=== PATIENT | female | born 1960 | race Hispanic/Latino ===

== ENCOUNTER → 2017-06-12 | Outpatient (CLI) | payer BC ==
[~2017-06-12] MED LIST: ACET1TAB12 PO; DIAZ5SOL2 PO; SERT25TA5 PO; SULF1TAB3 PO
== END | disposition home or self-care (01) ==
LOC: RAH 10:22
PROVIDERS: ATTEND Urology
DX: N20.0 Calculus of kidney (principal)
CPT/HCPCS: 74018

== ENCOUNTER 2017-08-15 19:54 | Emergency (ER) | payer BC ==
[2017-08-15] MEDS ORDERED: ONDANSETRON HCL MDV 20ML 2 MG/ML VIAL ONE (20:18)
[2017-08-15] MEDS ORDERED: SODIUM CHLORIDE 0.9% 1000ML 1,000 ML IV ONE (20:19)
[2017-08-15] MEDS ORDERED: KETOROLAC TROMETHAMINE 30MG/ML ONE (20:19)
[2017-08-15 20:25] LABS: APPEARANCE,URINE Clear (CLEAR); BILIRUBIN,URINE Negative (NEGATIVE); COLOR,URINE Yellow (YELLOW); GLUCOSE, URINE (UA) Negative (NEGATIVE); KETONES,URINE Negative (NEGATIVE); LEUKOCYTE ESTERASE ,URINE Moderate (NEGATIVE); NITRATE,URINE Positive (NEGATIVE); OCCULT BLOOD,URINE Moderate (NEGATIVE); PROTEIN,URINE Negative (NEGATIVE); UROBILINOGEN,URINE 0.2 mg/dL (0.2-1.0)
[2017-08-15 20:39] LABS: CREATININE 0.8 mg/dL (0.5-1.5); POTASSIUM 3.7 mmol/L (3.5-5.1)
[2017-08-15 20:44] LABS: ALBUMIN 3.9 g/dL (3.5-5.0); BILIRUBIN,TOTAL 1.1 mg/dL (0.2-1.0); TOTAL PROTEIN, SERUM 7.3 g/dL (6.0-8.3)
[2017-08-15] MEDS ORDERED: CEFTRIAXONE SODIUM 2 GM VIAL ONE (20:55)
[2017-08-15 21:04] LABS: BASOPHILS % (AUTO) 0.7 % (0.0-5.0); EOSINOPHILS % (AUTO) 0.2 % (0.0-8.0); HEMATOCRIT 42.7 % (36-48); LYMPHOCYTES % (AUTO) 10.2 % (21.0-51.0); MEAN CORPUSCULAR HEMOGLOBIN 29.8 pg (27.0-33.0); MEAN CORPUSCULAR HGB CONC 35.1 g/dL (32.0-36.0); MEAN CORPUSCULAR VOLUME 84.9 fL (79-99); MONOCYTES % (AUTO) 7.3 % (3.0-13.0); NEUTROPHILS % (AUTO) 81.6 % (40.0-77.0); PLATELET COUNT (AUTO) 258 K/uL (130-400); RED BLOOD CELL COUNT(AUTO) 5.03 MIL/uL (4.00-5.50); RED CELL DISTRIBUTION WIDTH 13.3 % (11.0-15.5); WHITE BLOOD COUNT (AUTO) 11.6 K/uL (4.8-10.8)
[2017-08-15] MEDS ORDERED: MORPHINE SULFATE 2 MG/ML 1ML SYG ONE (21:39)
[2017-08-15 21:43] LABS: BACTERIA,URINE Many /HPF (None Seen); MUCUS,URINE Few LPF (None Seen); RBC,URINE None Seen /HPF (0-1); SQUAMOUS EPITHELIAL CELL,UR None Seen /LPF (0-2)
[2017-11-25] MEDS ORDERED: SERT25TA5 PO (08:53)
[2017-11-25] MEDS ORDERED: DIAZ5SOL2 PO (08:53)
[2017-11-27] MEDS ORDERED: SULF1TAB3 PO (15:08)
[2017-11-27] MEDS ORDERED: ACET1TAB12 PO (15:22)
== END 2017-08-15 23:42 | disposition home or self-care (01) ==
LOC: EDH 19:54
DX: N12 Tubulo-interstitial nephritis, not specified as acute or chronic (principal); N39.0 Urinary tract infection, site not specified; Z90.710 Acquired absence of both cervix and uterus; Z98.890 Other specified postprocedural states
CPT/HCPCS: 36415; 74176; 80053; 81001; 82550; 83605; 83690; 85025; 87040 ×2; 93005; 96361; 96374; 96375; 99285; J0696; J1885; J7030

== ENCOUNTER → 2017-12-07 | Outpatient (CLI) | payer BC ==
[~2017-12-07] MED LIST changes: +ASPI-1197 PO; +IOHEXOL-350 75 ML VIAL IV ONE
== END | disposition home or self-care (01) ==
LOC: RAH 09:57
PROVIDERS: ATTEND Urology
DX: N28.89 Other specified disorders of kidney and ureter (principal); R60.9 Edema, unspecified; N13.30 Unspecified hydronephrosis
CPT/HCPCS: 74400; Q9967

== ENCOUNTER 2019-10-30 18:11 | Inpatient (IN) | payer BC ==
[~2019-10-30] VITALS: Ht 157.5 cm; Wt 69.7 kg
[~2019-10-30 18:11] MED LIST changes: -ACET1TAB12 PO; +BACL20TA PO; +CRAN250C2 PO; -DIAZ5SOL2 PO; +DIAZ5TAB4 PO; -IOHEXOL-350 75 ML VIAL IV ONE; +ONDA22I IM; -SERT25TA5 PO; +SERT50TA12 PO; -SULF1TAB3 PO; +TAMS-1 PO; +TRAZ-185 PO
[2019-10-30] MEDS ORDERED: ACETAMINOPHEN EXTRA STRENGTH 500 MG TABLET ONE (18:26)
[2019-10-30 18:40] LABS: BASOPHILS % (AUTO) 0.6 % (0.0-5.0); EOSINOPHILS % (AUTO) 1.7 % (0.0-8.0); HEMATOCRIT 40.6 % (36-48); LYMPHOCYTES % (AUTO) 21.1 % (21.0-51.0); MEAN CORPUSCULAR HEMOGLOBIN 29.2 pg (27.0-33.0); MEAN CORPUSCULAR HGB CONC 34.2 g/dL (32.0-36.0); MEAN CORPUSCULAR VOLUME 85.3 fL (79-99); NEUTROPHILS % (AUTO) 65.3 % (40.0-77.0); PLATELET COUNT (AUTO) 262 K/uL (130-400); RED BLOOD CELL COUNT(AUTO) 4.76 MIL/uL (4.00-5.50); RED CELL DISTRIBUTION WIDTH 12.8 % (11.0-15.5); WHITE BLOOD COUNT (AUTO) 9.9 K/uL (4.8-10.8)
[2019-10-30 18:40] LABS: APPEARANCE,URINE Clear (CLEAR); BILIRUBIN,URINE Negative (NEGATIVE); COLOR,URINE Yellow (YELLOW); GLUCOSE, URINE (UA) Negative (NEGATIVE); KETONES,URINE Negative (NEGATIVE); LEUKOCYTE ESTERASE ,URINE Large (NEGATIVE); NITRATE,URINE Negative (NEGATIVE); OCCULT BLOOD,URINE Moderate (NEGATIVE); PH,URINE 7.5 (5.0-8.0); PROTEIN,URINE Negative (NEGATIVE)
[2019-10-30 18:58] LABS: BACTERIA,URINE Rare /HPF (None Seen); SQUAMOUS EPITHELIAL CELL,UR Rare /HPF (0-2)
[2019-10-30 19:03] LABS: CARBON DIOXIDE 21 mmol/L (21-32); CHLORIDE 103 mmol/L (101-111); CREATININE 0.7 mg/dL (0.5-1.5); GLOMERULAR FILTR. RATE CALC 91 mL/min (>60); GLUCOSE,RANDOM 166 mg/dL (70-105); POTASSIUM 3.8 mmol/L (3.5-5.1); SODIUM SERUM 136 mmol/L (136-145); UREA NITROGEN, BLOOD 10 mg/dL (7-18)
[2019-10-30] MEDS ORDERED: KETOROLAC TROMETHAMINE 30MG/ML ONE (19:09)
[2019-10-30] MEDS ORDERED: MEROPENEM 1 GM VIAL ONE (19:09)
[2019-10-30 19:14] LABS: ALANINE AMINOTRANSFERASE 19 U/L (12-78); ALBUMIN 3.6 g/dL (3.5-5.0); ASPARTATE AMINOTRANSFERASE 18 U/L (10-37); BILIRUBIN,TOTAL 0.8 mg/dL (0.2-1.0); CREATINE KINASE, TOTAL 24 U/L (21-232); MYOGLOBIN 17 ng/mL (10-92); TOTAL PROTEIN, SERUM 7.2 g/dL (6.0-8.3); TROPONIN I < 0.04 ng/mL (0.00-0.06)
[2019-10-30 19:32] LABS: RAPID GROUP A STREP NEGATIVE (NEGATIVE)
[2019-10-30 19:48] LABS: INR 0.87 (0.85-1.15); PARTIAL THROMBOPLASTIN TIME 29.5 SEC (26.3-35.5); PROTHROMBIN TIME 9.4 SEC (9.6-11.6)
[2019-10-30] MEDS: SODIUM CHLORIDE 0.9% 1000ML 1,000 ML IV SCH (20:23)
[2019-10-30] MEDS ORDERED: ACETAMINOPHEN 325 MG TAB PO PRN ×2 (20:30)
[2019-10-30] MEDS: MEROPENEM 500 MG VIAL IV SCH (20:30)
[2019-10-30] MEDS ORDERED: HYDRALAZINE HCL 20 MG/ML VIAL IV PRN (20:30)
[2019-10-30] MEDS ORDERED: ONDANSETRON HCL 4 MG/2 ML VIAL IV PRN (20:30)
[2019-10-30] MEDS ORDERED: LACTULOSE 20 GM/30 ML UDCUP PO PRN (20:30)
[2019-10-30] MEDS ORDERED: HYDROMORPHONE 1 MG/1 ML AMP ONE (20:44)
[2019-10-30] MEDS: FAMOTIDINE/PF 20 MG/2 ML VIAL IV SCH (21:00)
[2019-10-30] MEDS ORDERED: ENOXAPARIN SODIUM 40 MG/0.4 ML SYRINGE SQ ONE (21:39)
[2019-10-30] MEDS ORDERED: FAMOTIDINE/PF 20 MG/2 ML VIAL IV ONE (21:40)
[2019-10-30] MEDS ORDERED: SODIUM CHLORIDE 0.9% 1000ML 1,000 ML IV ONE (21:41)
[2019-10-31] MEDS ORDERED: MEROPENEM 500 MG VIAL ONE (02:51)
[2019-10-31] MEDS ORDERED: HYDROMORPHONE HCL 0.5 MG/0.5 ML ML ONE (03:04)
[2019-10-31] MEDS: MEROPENEM 500 MG VIAL IV SCH ×3 (04:30→20:09)
[2019-10-31 04:58] LABS: BASOPHILS % (AUTO) 0.7 % (0.0-5.0); EOSINOPHILS % (AUTO) 3.6 % (0.0-8.0); HEMATOCRIT 38.9 % (36-48); LYMPHOCYTES % (AUTO) 26.6 % (21.0-51.0); MEAN CORPUSCULAR HEMOGLOBIN 29.1 pg (27.0-33.0); MEAN CORPUSCULAR HGB CONC 33.4 g/dL (32.0-36.0); MONOCYTES % (AUTO) 14.4 % (3.0-13.0); NEUTROPHILS % (AUTO) 54.1 % (40.0-77.0); PLATELET COUNT (AUTO) 213 K/uL (130-400); RED BLOOD CELL COUNT(AUTO) 4.47 MIL/uL (4.00-5.50); RED CELL DISTRIBUTION WIDTH 12.9 % (11.0-15.5); WHITE BLOOD COUNT (AUTO) 7.2 K/uL (4.8-10.8)
[2019-10-31 05:10] VITALS: BP 117/68
[2019-10-31 05:14] LABS: CREATININE 0.8 mg/dL (0.5-1.5); POTASSIUM 3.7 mmol/L (3.5-5.1)
--- NOTE | 2019-10-31 05:20 | NUR ---
PT ARRIVED AT THIS TIME FROM ER. PT IS STABLE. DOES HAVE PAIN IN FLANK AREA. GIVEN DILAUDID IN ER. REPORT RECEIVED BY EDY FRASER. PT STATES SHE HAS CHRONIC STONES. ESBL AND ECOLI. PT STATES SHE HAS BEEN GENERALLY WEAK.
[2019-10-31] MEDS: SODIUM CHLORIDE 0.9% 1000ML 1,000 ML IV SCH ×2 (05:32→17:58)
[2019-10-31 07:00] VITALS: BP 141/79
--- NOTE | 2019-10-31 08:31 | NUR ---
SPOKE WITH BARBARA FROM DR. COBB OFFICE, MADE AWARE OF PENDING CONSULT
[2019-10-31] MEDS: HYDROMORPHONE HCL 0.5 MG/0.5 ML ML IVP PRN ×3 (09:12→23:06)
[2019-10-31] MEDS: FAMOTIDINE/PF 20 MG/2 ML VIAL IV SCH ×2 (09:12→20:09)
[2019-10-31 11:00] VITALS: BP 118/63
[2019-10-31 16:00] VITALS: BP 121/78
--- NOTE | 2019-10-31 17:00 | NUR ---
165 PATIENT IN RESTROOM, PULLED RED LIGHT, REYMUNDO FOUND STANDING AT THIS TIME, SHE REPORTED SHE SLIPPED ON A TOWEL SHE HAD PLACED ON THE FLOOR AND FELL TO HER KNEES, DENIES ANY PAIN, NO VISIBLE INJURIES NOTED. V/S WITHIN NORMAL LIMITS. DR. SIDHU ON UNIT AT THIS TIME, HE ASSESSED PATIENT. NO NEW ORDERS. PATIENT DENIES HITTING HER HEAD OR ANY OTHER PART OF HER BODY.
--- NOTE | 2019-10-31 17:33 | NUR ---
INITIAL ASSESSMENT MET W PATIENT AT BEDSIDE- PT STATES INDEPENDENT, DRIVES, NO DME, HOME SAFE AND ACCESSIBLE- STATES SPOUSE WORKS FROM HOME IN THE AFTERNOONS- 230 TO MIDNIGHT, SO PATIENT DROVE HERSELF TO THE HOSPITAL AND EXPECTS TO DRIVE HERSELF HOME . HAS BEEN USING A WALKER BECAUSE OF PAIN FOR THE LAST TWO DAYS. PAIN BETTER CONTROLLED HERE IN THE HOSPITAL. DCP IS HOME, NO NEEDS ANTICIPATED Addendum: 10/31/19 at 1736 by BRITTANY CONROY RN CM Amended: Links added.
[2019-10-31] MEDS: TAMSULOSIN HCL 0.4 MG CAP.ER.24H PO SCH (17:57)
[2019-10-31] MEDS: DILTIAZEM HCL 120 MG CAP.SR.24H PO SCH (17:57)
[2019-10-31] MEDS: ENOXAPARIN SODIUM 40 MG/0.4 ML SYRINGE SQ SCH (17:58)
[2019-10-31 19:49] VITALS: BP 101/61
[2019-11-01] VITALS (7 sets, daily range): BP systolic 96–118; BP diastolic 60–72
[2019-11-01] MEDS: SODIUM CHLORIDE 0.9% 1000ML 1,000 ML IV SCH ×3 (02:41→22:16)
[2019-11-01 04:26] LABS: BASOPHILS % (AUTO) 0.8 % (0.0-5.0); EOSINOPHILS % (AUTO) 4.2 % (0.0-8.0); HEMATOCRIT 35.6 % (36-48); LYMPHOCYTES % (AUTO) 33.3 % (21.0-51.0); MEAN CORPUSCULAR HEMOGLOBIN 29.5 pg (27.0-33.0); MEAN CORPUSCULAR HGB CONC 33.4 g/dL (32.0-36.0); MEAN CORPUSCULAR VOLUME 88.1 fL (79-99); MONOCYTES % (AUTO) 11.1 % (3.0-13.0); NEUTROPHILS % (AUTO) 50.3 % (40.0-77.0); PLATELET COUNT (AUTO) 227 K/uL (130-400); RED BLOOD CELL COUNT(AUTO) 4.04 MIL/uL (4.00-5.50); RED CELL DISTRIBUTION WIDTH 12.7 % (11.0-15.5); WHITE BLOOD COUNT (AUTO) 7.9 K/uL (4.8-10.8)
[2019-11-01] MEDS: MEROPENEM 500 MG VIAL IV SCH ×3 (04:30→21:09)
[2019-11-01 05:09] LABS: CREATININE 0.7 mg/dL (0.5-1.5); CRP QUANTITATIVE 59.7 mg/L (0.00-9.0)
[2019-11-01] MEDS ORDERED: IOHEXOL 350 MG/ML 100ML INFUS..BTL IV ONE (09:40)
--- NOTE | 2019-11-01 10:00 | NUR ---
RECEIVED CALL FROM RADIOLOGY, UNABLE TO PERFORM IVP DUE TO CONSTIPATION. DR. RATLIFF MADE AWARE, PATIENT WILL RECEIVE LACTULOSE PER PRN ORDER AND AN ENEMA IF NEEDED. IVP RESCHEDULED FOR TOMORROW
[2019-11-01] MEDS: TAMSULOSIN HCL 0.4 MG CAP.ER.24H PO SCH (10:22)
[2019-11-01] MEDS: FAMOTIDINE/PF 20 MG/2 ML VIAL IV SCH ×2 (10:22→21:09)
[2019-11-01] MEDS: ENOXAPARIN SODIUM 40 MG/0.4 ML SYRINGE SQ SCH (10:23)
[2019-11-01] MEDS: HYDROMORPHONE HCL 0.5 MG/0.5 ML ML IVP PRN ×2 (10:30→18:06)
[2019-11-01] MEDS: DILTIAZEM HCL 120 MG CAP.SR.24H PO SCH (12:22)
[2019-11-01] MEDS ORDERED: BACLOFEN 10 MG TABLET PO SCH (14:00)
[2019-11-01] MEDS: LACTULOSE 20 GM/30 ML UDCUP PO SCH ×2 (18:02→21:08)
[2019-11-01] MEDS: TRAZODONE HCL 50 MG TAB PO SCH (21:09)
[2019-11-02 04:00] VITALS: BP 112/63
[2019-11-02] MEDS: LACTULOSE 20 GM/30 ML UDCUP PO SCH (04:30)
[2019-11-02 05:08] LABS: BASOPHILS % (AUTO) 0.8 % (0.0-5.0); EOSINOPHILS % (AUTO) 5.2 % (0.0-8.0); HEMATOCRIT 34.8 % (36-48); LYMPHOCYTES % (AUTO) 36.4 % (21.0-51.0); MEAN CORPUSCULAR HEMOGLOBIN 29.8 pg (27.0-33.0); MEAN CORPUSCULAR HGB CONC 33.9 g/dL (32.0-36.0); MEAN CORPUSCULAR VOLUME 87.9 fL (79-99); MONOCYTES % (AUTO) 11.2 % (3.0-13.0); NEUTROPHILS % (AUTO) 46.2 % (40.0-77.0); PLATELET COUNT (AUTO) 235 K/uL (130-400); RED BLOOD CELL COUNT(AUTO) 3.96 MIL/uL (4.00-5.50); RED CELL DISTRIBUTION WIDTH 12.6 % (11.0-15.5); WHITE BLOOD COUNT (AUTO) 5.9 K/uL (4.8-10.8)
[2019-11-02 05:13] LABS: CREATININE 0.6 mg/dL (0.5-1.5); POTASSIUM 3.7 mmol/L (3.5-5.1)
[2019-11-02] MEDS: MEROPENEM 500 MG VIAL IV SCH (05:30)
[2019-11-02 07:30] VITALS: BP 107/73
[2019-11-02] MEDS: HYDROMORPHONE HCL 0.5 MG/0.5 ML ML IVP PRN ×2 (08:22→19:46)
[2019-11-02] MEDS: SODIUM CHLORIDE 0.9% 1000ML 1,000 ML IV SCH ×2 (08:23→19:45)
[2019-11-02] MEDS: CRANBERRY 250 MG PO SCH (09:00)
[2019-11-02] MEDS: DILTIAZEM HCL 120 MG CAP.SR.24H PO SCH (09:00)
[2019-11-02] MEDS ORDERED: TAMSULOSIN HCL 0.4 MG CAP.ER.24H PO SCH (09:00)
[2019-11-02 11:30] VITALS: BP 107/69
[2019-11-02] MEDS: TAMSULOSIN HCL 0.4 MG CAP.ER.24H PO SCH (11:58)
[2019-11-02] MEDS: ENOXAPARIN SODIUM 40 MG/0.4 ML SYRINGE SQ SCH (11:59)
[2019-11-02] MEDS: MEROPENEM 1 GM VIAL IVP SCH ×2 (11:59→18:18)
[2019-11-02] MEDS: ASPIRIN 81MG TAB.CHEW PO SCH (11:59)
[2019-11-02] MEDS: SERTRALINE HCL 50 MG TABLET PO SCH (11:59)
[2019-11-02] MEDS: FAMOTIDINE/PF 20 MG/2 ML VIAL IV SCH ×2 (11:59→19:46)
[2019-11-02 15:30] VITALS: BP 142/55
--- NOTE | 2019-11-02 18:46 | NUR ---
Received report from BRIA Sharp for transfer.
[2019-11-02 19:28] VITALS: BP 111/72
--- NOTE | 2019-11-02 19:28 | NUR ---
Pt. transferred to floor via W/C from [facility] with her belongings. Fully awake and responsive. VS checked and recorded. Assessment done. (See CPOE flow chart.) Plan of care continued. IVP with tomograms done. To wait for Dr. KUMAR to come by for the next medical management based on IVP result.
[2019-11-02] MEDS: TRAZODONE HCL 50 MG TAB PO SCH (22:53)
[2019-11-02 23:09] VITALS: BP 111/80
[2019-11-03] MEDS: MEROPENEM 1 GM VIAL IVP SCH ×3 (03:00→19:57)
[2019-11-03 03:12] VITALS: BP 112/51
[2019-11-03 04:45] LABS: BASOPHILS % (AUTO) 1.1 % (0.0-5.0); EOSINOPHILS % (AUTO) 6.6 % (0.0-8.0); HEMATOCRIT 34.5 % (36-48); LYMPHOCYTES % (AUTO) 44.5 % (21.0-51.0); MEAN CORPUSCULAR HEMOGLOBIN 29.6 pg (27.0-33.0); MEAN CORPUSCULAR HGB CONC 33.9 g/dL (32.0-36.0); MEAN CORPUSCULAR VOLUME 87.3 fL (79-99); MONOCYTES % (AUTO) 10.2 % (3.0-13.0); NEUTROPHILS % (AUTO) 37.2 % (40.0-77.0); PLATELET COUNT (AUTO) 247 K/uL (130-400); RED BLOOD CELL COUNT(AUTO) 3.95 MIL/uL (4.00-5.50); RED CELL DISTRIBUTION WIDTH 12.5 % (11.0-15.5); WHITE BLOOD COUNT (AUTO) 4.7 K/uL (4.8-10.8)
[2019-11-03] MEDS: SODIUM CHLORIDE 0.9% 1000ML 1,000 ML IV SCH ×3 (04:47→19:57)
[2019-11-03 04:56] LABS: CREATININE 0.7 mg/dL (0.5-1.5); POTASSIUM 3.6 mmol/L (3.5-5.1)
[2019-11-03 08:00] VITALS: BP 123/79
--- NOTE | 2019-11-03 08:00 | NUR ---
AM SHIFT ASSESSMENT. NPO, PENDING TO BE SEEN BY .
[2019-11-03] MEDS: CRANBERRY 250 MG PO SCH (09:00)
[2019-11-03] MEDS: FAMOTIDINE/PF 20 MG/2 ML VIAL IV SCH ×2 (09:27→19:57)
[2019-11-03] MEDS: TAMSULOSIN HCL 0.4 MG CAP.ER.24H PO SCH (09:27)
[2019-11-03] MEDS: SERTRALINE HCL 50 MG TABLET PO SCH (09:27)
[2019-11-03] MEDS: DILTIAZEM HCL 120 MG CAP.SR.24H PO SCH (09:27)
[2019-11-03] MEDS: ASPIRIN 81MG TAB.CHEW PO SCH (09:28)
[2019-11-03] MEDS: ENOXAPARIN SODIUM 40 MG/0.4 ML SYRINGE SQ SCH (09:33)
--- NOTE | 2019-11-03 10:30 | NUR ---
IVP REPORT FAXED TO DR.ASASE VOGEL
[2019-11-03] MEDS: HYDROMORPHONE HCL 0.5 MG/0.5 ML ML IVP PRN (11:45)
--- NOTE | 2019-11-03 11:45 | NUR ---
MEDICATED FOR PAIN TO LT. FLANK AREA.
[2019-11-03 12:00] VITALS: BP 117/69
[2019-11-03 15:51] VITALS: BP 109/66
--- NOTE | 2019-11-03 17:25 | NUR ---
CALLED FOR UPDATE ON PT. STATES TO FEED HER TODAY AND NPO AGAIN AGAIN AT MIDNIGHT AND WILL RE EVALUATE TOMORROW
[2019-11-03 19:00] VITALS: BP 129/72
[2019-11-03] MEDS: TRAZODONE HCL 50 MG TAB PO SCH (19:57)
[2019-11-04] VITALS (7 sets, daily range): BP systolic 98–138; BP diastolic 50–86
[2019-11-04] MEDS: MEROPENEM 1 GM VIAL IVP SCH ×3 (03:19→19:57)
[2019-11-04] MEDS ORDERED: LIDOCAINE HCL-MPF 1% 2ML VIAL IV PRN (05:45)
[2019-11-04] MEDS ORDERED: POTASSIUM CHLORIDE 20MEQ/100ML 100 ML IV PRN (05:45)
[2019-11-04] MEDS ORDERED: POTASSIUM CHLORIDE 10% ELIXIR 20 MEQ/15 ML UDCUP PO PRN (05:45)
[2019-11-04 05:58] LABS: BASOPHILS % (AUTO) 1.1 % (0.0-5.0); EOSINOPHILS % (AUTO) 4.8 % (0.0-8.0); HEMATOCRIT 33.7 % (36-48); LYMPHOCYTES % (AUTO) 47.3 % (21.0-51.0); MEAN CORPUSCULAR HEMOGLOBIN 28.9 pg (27.0-33.0); MEAN CORPUSCULAR HGB CONC 33.8 g/dL (32.0-36.0); MEAN CORPUSCULAR VOLUME 85.5 fL (79-99); MONOCYTES % (AUTO) 8.7 % (3.0-13.0); NEUTROPHILS % (AUTO) 37.9 % (40.0-77.0); PLATELET COUNT (AUTO) 250 K/uL (130-400); RED BLOOD CELL COUNT(AUTO) 3.94 MIL/uL (4.00-5.50); RED CELL DISTRIBUTION WIDTH 12.3 % (11.0-15.5); WHITE BLOOD COUNT (AUTO) 4.4 K/uL (4.8-10.8)
[2019-11-04] MEDS: POTASSIUM CHLORIDE 20 MEQ ERTAB PO PRN ×2 (06:23→22:39)
[2019-11-04 06:49] LABS: CREATININE 0.7 mg/dL (0.5-1.5); POTASSIUM 3.5 mmol/L (3.5-5.1)
[2019-11-04] MEDS: SERTRALINE HCL 50 MG TABLET PO SCH (09:00)
[2019-11-04] MEDS: DILTIAZEM HCL 120 MG CAP.SR.24H PO SCH (09:00)
[2019-11-04] MEDS: CRANBERRY 250 MG PO SCH (09:00)
[2019-11-04] MEDS: TAMSULOSIN HCL 0.4 MG CAP.ER.24H PO SCH (09:00)
[2019-11-04] MEDS: ASPIRIN 81MG TAB.CHEW PO SCH (09:00)
[2019-11-04] MEDS: ENOXAPARIN SODIUM 40 MG/0.4 ML SYRINGE SQ SCH (09:00)
[2019-11-04] MEDS: FAMOTIDINE/PF 20 MG/2 ML VIAL IV SCH ×2 (09:56→19:57)
--- NOTE | 2019-11-04 14:30 | NUR ---
DR. KUMAR IN TO SEE PT. NOW, NO FURTHER INTERVENTION FROM HIS END AT THIS TIME TO FOLLOW UP WITH HIM IN 2 TO 3 WEEKS AFTER DISCHARGE.
[2019-11-04 16:06] LABS: INR 0.96 (0.85-1.15); PROTHROMBIN TIME 10.4 SEC (9.6-11.6)
--- NOTE | 2019-11-04 16:12 | NUR ---
CONSENT SIGNED FOR PLACEMENT OF PICC LINE,
[2019-11-04] MEDS: TRAZODONE HCL 50 MG TAB PO SCH (19:57)
[2019-11-04] MEDS: SODIUM CHLORIDE 0.9% 1000ML 1,000 ML IV SCH ×2 (19:57→20:23)
--- NOTE | 2019-11-04 21:30 | NUR ---
LEFT PICC LINE SUCCESSFULLY INSERTED IN LEFT BRACHIAL VEIN, WITH VPS GUIDANCE. HOWEVER UNABLE TO OBTAIN "BULLSEYE" SIGNAL AFTER MULTIPLE ADJUSTMENTS OF CATHETER. PICC LINE REPOSITIONED AFTER SECOND CHEST XRAY TAKEN UNTIL CATHETER TIP IN SATISFACTORY POSITIONING. PENDING RADIOLOGIST CONFIRMATION OF "TIP IN SVC" FOR OK TO USE. BRIA JIMENES AWARE.
--- NOTE | 2019-11-04 22:00 | NUR ---
PAGED GIO GUTIÉRREZ ABOUT PATIENT'S PICC LINE. PERMISSION TO USE GIVEN.
[2019-11-05] MEDS: MEROPENEM 1 GM VIAL IVP SCH ×2 (00:27→09:40)
[2019-11-05 04:00] VITALS: BP 116/58
[2019-11-05] MEDS: SODIUM CHLORIDE 0.9% 1000ML 1,000 ML IV SCH (06:23)
--- NOTE | 2019-11-05 07:30 | NUR ---
NOTE AAOX3. DENIES PAIN OR DISCOMFORT. NO FEVER NO DISTRESS. SHE CAME IN WITH LOWER ABDOMEN PAIN FLANK PAIN AND SHE HAD IVP DONE PER DR KUMAR'S ORDERS TO EVALUATE WHETHER SHE NEEDED A URETERAL STENT BUT HE RECOMMENDED NOT TO HAVE IT DONE. SHE WAS PLACED A PICC LINE LAST NIGHT AND SHE WILL GO HOME WITH [facility] PER DR SERRANO'S RECOMMENDATIONS. WE ARE JUST WAITING ON THE SCRIPT FOR IV ABX FROM HIM SO CASE MANAGEMENT CAN WORK ON [facility] SET UP.
[2019-11-05 08:05] VITALS: BP 131/75
[2019-11-05] MEDS: CRANBERRY 250 MG PO SCH (09:00)
[2019-11-05] MEDS: TAMSULOSIN HCL 0.4 MG CAP.ER.24H PO SCH (09:28)
[2019-11-05] MEDS: SERTRALINE HCL 50 MG TABLET PO SCH (09:28)
[2019-11-05] MEDS: ASPIRIN 81MG TAB.CHEW PO SCH (09:28)
[2019-11-05] MEDS: DILTIAZEM HCL 120 MG CAP.SR.24H PO SCH (09:29)
[2019-11-05] MEDS: FAMOTIDINE/PF 20 MG/2 ML VIAL IV SCH (09:29)
[2019-11-05] MEDS: ENOXAPARIN SODIUM 40 MG/0.4 ML SYRINGE SQ SCH (09:29)
[2019-11-05 11:35] VITALS: BP 121/77
[2019-11-05] MEDS ORDERED: TAMS-1 PO (12:48)
--- NOTE | 2019-11-05 14:55 | NUR ---
NOTE PATIENT HAS BEEN SEEN BY DR SERRANO AND HE HAS RECOMMENDED INVANZ IV FOR 10 DAYS. SHE HAS HAD INVANZ IN THE PAST ADMISSION. SHE DOES NOT NEED INITIAL DOSE TO BE GIVEN PRIOR TO DISCHARGE.
--- NOTE | 2019-11-05 15:15 | NUR ---
[facility] RECD ORDER FOR U FROM DR. VENTURA AND REFERRAL SENT. CALL TO [facility], RECD OK FROM [facility] AT 3PM , OK TO HAVE PATIENT REGISTER. ADVISED PATIENT, SHE STATES THAT SHE TOLD BAMBI AND RN EARLY IN THE DAY THAT HER COULD NOT REGISTER HER AFTER 230 PM. EXPLAINED THAT ORDER WAS REC'D AFTER 1PM TODAY AND [place] [facility] [place] IF SHE WANTED TO GO REGISTER HERSELF NOW, SHE KNOWS THAT U CLOSES AT 4PM SHE WOULD NOT GET AN APPOINTMENT CONFIRMED POSSIBLE UNTIL THE MORNING. PATIENT HAS SAME INSURANCE THAT HAS BEEN ACCEPTED/APPROVED FOR [facility] EARLIER THIS YEAR PATIENT STATES HAS GONE TO [facility] 'MANY TIMES' AND KNOWS ALL ABOUT IT, WILL TO ACCEPT THE FACT THAT SHE HAS TO FOLLOW UP FOR AN APPOINTMENT TIME. ADVISED DR. QUINTANA AND PRIMARY RN Addendum: 11/06/19 at 0751 by BRITTANY CONROY RN CM Amended: Links added.
--- NOTE | 2019-11-05 15:40 | NUR ---
NOTE DISCHARGE INSTRUCTIONS GIVEN TO PATIENT AT THIS TIME. VERBALIZED UNDERSTANDING. REFER TO DC SUMMARY FOR DETAILS. SHE [place] [facility]. SHE HAS THE ORDERS GIVEN FROM CASE MANAGEMENT. SHE HAS DONE THIS BEFORE TWICE SO SHE IS FAMILIAR WITH THE PROCESS AND KNOWS WHERE TO GO. FAMILY TRANSPORTING HER THERE.
--- NOTE | 2019-11-06 14:50 | NUR ---
REC'D CALL THIS MORNING FROM PATIENT STATE SHE WENT TO [place] [facility] [place] WAS TOLD THE MEDICINE WOULD COST $1800 AND SHE CANNOT AFFORD- CM ASKED IF SHE HAD TO PAY SAME AMOUNT IN JULY, SHE STATES NO, THERE WAS NO CO-PAY. CM ASKED, BUT YOU SAID YOU HAD SAME INSURANCE, SHE STATES ITS NOT THE SAME AFTER ALL. STATES SHE IS WORKING WITH [facility] [place]IST[facility]ATION TO SEE IF SHE CAN GET A PAYMENT PLANE CALLED X2 TO [facility], CALLED AGAIN TO PATIENT/SPOUSE NO ANSWER. CALL TO [facility] AT [facility], STATES SHE TRANSFERRED THE PATIENT TO REGISTRATION, STATES DIRECTOR OF [facility] TRYING OT GET A SUKHJINDER RATE FOR PATIENT
== END 2019-11-05 15:30 | disposition home or self-care (01) | DRG 872 ==
LOC: EDH 18:11 → EDHIP 20:23 → 4BH 10-31 05:19 → 3CH 11-02 18:50
PROVIDERS: ADMIT Internal Medicine; ATTEND Internal Medicine
PROC: 02HV33Z Insertion of Infusion Device into Superior Vena Cava, Percutaneous Approach (ICD-10-PCS; principal; 2019-11-04)
DX: A41.51 Sepsis due to Escherichia coli [E. coli] (principal); N13.6 Pyonephrosis; Z16.24 Resistance to multiple antibiotics; Z87.442 Personal history of urinary calculi; Z86.19 Personal history of other infectious and parasitic diseases; I10 Essential (primary) hypertension; F32.9 Major depressive disorder, single episode, unspecified; F41.9 Anxiety disorder, unspecified; Z87.440 Personal history of urinary (tract) infections; Z90.710 Acquired absence of both cervix and uterus; Z91.19 Patient's noncompliance with other medical treatment and regimen; G43.909 Migraine, unspecified, not intractable, without status migrainosus; Z88.6 Allergy status to analgesic agent; Z88.0 Allergy status to penicillin; Z88.8 Allergy status to other drugs, medicaments and biological substances; E83.59 Other disorders of calcium metabolism; N29 Other disorders of kidney and ureter in diseases classified elsewhere
CPT/HCPCS: 36415; 71045; 74018; 74176; 74400; 80048; 80053; 81001; 82550; 83605; 83874; 84145; 84484; 85025; 85610; 85730; 86140; 87040; 87077; 87088; 87186; 87804; 87880; 93005; C1894; G0378; J1170; J1650; J1885; J2185; J3490; J7030; Q9967

== ENCOUNTER 2020-02-21 14:35 | Inpatient (IN) | payer BC ==
[~2020-02-21] VITALS: Ht 157.5 cm; Wt 71.8 kg
[2020-02-21] MEDS ORDERED: SODIUM CHLORIDE 0.9% 1000ML 1,000 ML IV ONE ×2 (15:06→16:30)
[2020-02-21] MEDS ORDERED: ACETAMINOPHEN EXTRA STRENGTH 500 MG TABLET ONE (15:06)
[2020-02-21 15:12] LABS: BASOPHILS % (AUTO) 0.4 % (0.0-5.0); HEMATOCRIT 40.9 % (36-48); LYMPHOCYTES % (AUTO) 18.8 % (21.0-51.0); MEAN CORPUSCULAR HEMOGLOBIN 29.2 pg (27.0-33.0); MEAN CORPUSCULAR HGB CONC 33.7 g/dL (32.0-36.0); MEAN CORPUSCULAR VOLUME 86.7 fL (79-99); MONOCYTES % (AUTO) 12.3 % (3.0-13.0); NEUTROPHILS % (AUTO) 67.3 % (40.0-77.0); PLATELET COUNT (AUTO) 295 K/uL (130-400); RED BLOOD CELL COUNT(AUTO) 4.72 MIL/uL (4.00-5.50); WHITE BLOOD COUNT (AUTO) 11.4 K/uL (4.8-10.8)
[2020-02-21 15:14] LABS: APPEARANCE,URINE Clear (CLEAR); BILIRUBIN,URINE Negative (NEGATIVE); COLOR,URINE Yellow (YELLOW); GLUCOSE, URINE (UA) Negative (NEGATIVE); KETONES,URINE Negative (NEGATIVE); LEUKOCYTE ESTERASE ,URINE Moderate (NEGATIVE); NITRATE,URINE Negative (NEGATIVE); OCCULT BLOOD,URINE Small (NEGATIVE); PROTEIN,URINE Negative (NEGATIVE)
[2020-02-21 15:23] LABS: BACTERIA,URINE Moderate /HPF (None Seen); MUCUS,URINE Few LPF (None Seen); SQUAMOUS EPITHELIAL CELL,UR 0-2 /HPF (0-2)
[2020-02-21 15:26] LABS: CREATININE 0.8 mg/dL (0.5-1.5); POTASSIUM 3.4 mmol/L (3.5-5.1)
[2020-02-21] MEDS ORDERED: MEROPENEM 1 GM VIAL ONE (15:28)
[2020-02-21] MEDS ORDERED: SODIUM CHLORIDE 0.9% 50 ML IV ONE (15:28)
[2020-02-21 15:32] LABS: ALBUMIN 3.8 g/dL (3.5-5.0); BILIRUBIN,TOTAL 0.7 mg/dL (0.2-1.0); TOTAL PROTEIN, SERUM 7.7 g/dL (6.0-8.3)
[2020-02-21] MEDS ORDERED: KETOROLAC TROMETHAMINE 30MG/ML ONE (16:29)
[2020-02-21] MEDS ORDERED: POTASSIUM CHLORIDE 20 MEQ ERTAB PO SCH (19:30)
[2020-02-21] MEDS ORDERED: POTASSIUM CHLORIDE 10% ELIXIR 20 MEQ/15 ML UDCUP PO PRN (19:45)
[2020-02-21] MEDS ORDERED: LIDOCAINE HCL-MPF 1% 2ML VIAL IJ PRN (19:45)
[2020-02-21] MEDS ORDERED: ONDANSETRON HCL 4 MG/2 ML VIAL IV PRN (19:45)
[2020-02-21] MEDS ORDERED: ACETAMINOPHEN 325 MG TAB PO PRN ×2 (19:45)
[2020-02-21] MEDS ORDERED: DIPHENHYDRAMINE HCL 25 MG CAPSULE PO PRN (19:45)
[2020-02-21] MEDS ORDERED: NITROGLYCERIN 0.4 MG SL TAB SL PRN (19:45)
[2020-02-21] MEDS ORDERED: POTASSIUM CHLORIDE 20MEQ/100ML 100 ML IV PRN (19:45)
[2020-02-21] MEDS ORDERED: FAMOTIDINE 20MG TAB 20 MG TAB ONE (19:52)
[2020-02-21] MEDS ORDERED: ACETAMINOPHEN 325 MG TAB ONE (19:53)
[2020-02-21] MEDS ORDERED: POTASSIUM CHLORIDE 20 MEQ ERTAB PO ONE (19:53)
[2020-02-21 20:10] LABS: CREATINE KINASE, TOTAL 30 U/L (21-232); MYOGLOBIN 24 ng/mL (10-92); TROPONIN I < 0.04 ng/mL (0.00-0.06)
[2020-02-21] MEDS: FAMOTIDINE 20MG TAB 20 MG TAB PO SCH (21:00)
[2020-02-21 22:10] VITALS: BP 123/54
--- NOTE | 2020-02-21 22:20 | NUR ---
ADMISSION NOTE: Admitted to floor per wheechair. AOx4 but looking weak. Placed in bed comfortably. VS checked and recorded. Physical Assessment done. ( See CPOE flow chart for full assessment) Plan of care initiated. Has IV site to RAC #20 gauge -patent and intact. IVF NS 1L started at 100 ml/hr via infusion pump as ordered. Home meds listed. For urology and infectious disease MD consult in AM . Seen and examined by Hospitalist , Stone NP with additional orders. Policies and procedures explained. Oriented to room and used of call light. Pain and tenderness noted to bilat flank and lower abd. Medicated as ordered. Observed and monitored for any unusualities. Needs attended and cared for.
[2020-02-21] MEDS ORDERED: NAPR-1023 PO (22:22)
[2020-02-21] MEDS ORDERED: TEMAZEPAM 15 MG CAPSULE ONE (22:43)
[2020-02-21] MEDS ORDERED: TEMAZEPAM 15 MG CAPSULE PO ONE (22:45)
[2020-02-21] MEDS ORDERED: HYDROCODONE/ACETAMINOPHEN 5/325 MG TAB ONE (22:46)
[2020-02-21] MEDS: SODIUM CHLORIDE 0.9% 1000ML 1,000 ML IV SCH (22:50)
[2020-02-21] MEDS: MEROPENEM 1 GM VIAL IVP SCH (23:25)
[2020-02-21] MEDS: TAMSULOSIN HCL 0.4 MG CAP.ER.24H PO SCH (23:30)
[2020-02-21 23:42] VITALS: BP 122/56
[2020-02-22 04:00] VITALS: BP 93/69
[2020-02-22] MEDS: HYDROCODONE/ACETAMINOPHEN 5/325 MG TAB PO PRN ×2 (05:45→09:51)
[2020-02-22 06:03] LABS: BASOPHILS % (AUTO) 0.6 % (0.0-5.0); EOSINOPHILS % (AUTO) 1.4 % (0.0-8.0); HEMATOCRIT 36.6 % (36-48); LYMPHOCYTES % (AUTO) 17.3 % (21.0-51.0); MEAN CORPUSCULAR HEMOGLOBIN 29.3 pg (27.0-33.0); MEAN CORPUSCULAR HGB CONC 33.9 g/dL (32.0-36.0); MEAN CORPUSCULAR VOLUME 86.5 fL (79-99); NEUTROPHILS % (AUTO) 68.3 % (40.0-77.0); PLATELET COUNT (AUTO) 260 K/uL (130-400); RED BLOOD CELL COUNT(AUTO) 4.23 MIL/uL (4.00-5.50); RED CELL DISTRIBUTION WIDTH 13.1 % (11.0-15.5); WHITE BLOOD COUNT (AUTO) 10.8 K/uL (4.8-10.8)
[2020-02-22 06:18] LABS: ALBUMIN 2.9 g/dL (3.5-5.0); BILIRUBIN,TOTAL 0.9 mg/dL (0.2-1.0); CREATININE 0.8 mg/dL (0.5-1.5); MAGNESIUM 1.7 mg/dL (1.80-2.40); POTASSIUM 3.8 mmol/L (3.5-5.1); TOTAL PROTEIN, SERUM 6.5 g/dL (6.0-8.3)
[2020-02-22 07:59] VITALS: BP 120/68
[2020-02-22] MEDS: ENOXAPARIN SODIUM 30 MG/0.3 ML SQ SCH (09:32)
[2020-02-22] MEDS: MEROPENEM 1 GM VIAL IVP SCH ×3 (09:32→23:48)
[2020-02-22] MEDS: TAMSULOSIN HCL 0.4 MG CAP.ER.24H PO SCH (09:32)
[2020-02-22] MEDS: FAMOTIDINE 20MG TAB 20 MG TAB PO SCH ×2 (09:32→22:11)
[2020-02-22] MEDS ORDERED: FLU VACC QS2020-21(6MOS UP)/PF 60 MCG/0.5 ML ML IM ONE (10:00)
[2020-02-22 11:58] VITALS: BP 104/62
[2020-02-22] MEDS ORDERED: HYDROMORPHONE 1 MG/1 ML AMP IVP PRN (15:15)
[2020-02-22] MEDS ORDERED: HYDROMORPHONE PCA 10 MG/50 ML 50 ML IV PRN (15:15)
[2020-02-22] MEDS ORDERED: NALOXONE HCL 0.4 MG/1 ML ML IVP PRN (15:15)
[2020-02-22] MEDS ORDERED: HYDROMORPHONE HCL 0.5 MG/0.5 ML ML IVP PRN (15:15)
[2020-02-22] MEDS ORDERED: HYDROMORPHONE HCL 2 MG/ML VIAL ONE (15:19)
[2020-02-22] MEDS: SODIUM CHLORIDE 0.9% 1000ML 1,000 ML IV SCH (15:42)
[2020-02-22 16:00] VITALS: BP 119/69
[2020-02-22] MEDS ORDERED: IOHEXOL 350 MG/ML 100ML INFUS..BTL IV ONE (17:53)
[2020-02-22 20:00] VITALS: BP 121/64
--- NOTE | 2020-02-22 22:12 | NUR ---
MEDS SHIFT ASSESSMENT DONE, PLEASE REFER TO CHART. DUE MEDS ADMINISTERED. SALES REPRESENTATIVE GROCERIES DILAUDID STARTED, WITNESSED BY BRIA MORRIS. INSTRUCTED PT ON USE OF SALES REPRESENTATIVE GROCERIES, VERBALIZES UNDERSTANDING. RAPID COVID SWAB DONE, SENT TO LAB FOR ANALYSIS. KEPT COMFORTALBE IN BED. WILL RE-ASSESS PT. Addendum: 02/23/20 at 0339 by BEBA ROLLINS RN RN Amended: Links added.
[2020-02-23] VITALS: BP 121/65
[2020-02-23] MEDS: SODIUM CHLORIDE 0.9% 1000ML 1,000 ML IV SCH ×3 (01:06→20:23)
--- NOTE | 2020-02-23 02:00 | NUR ---
ROUNDS PT RESTING WELL, FAIRLY ASLEEP. NO DISTRESS NOTED. KEPT UNDISTURBED FOR NOW. WILL CONTINUE TO MONITOR.
[2020-02-23 04:00] VITALS: BP 121/61
[2020-02-23 05:24] LABS: BASOPHILS % (AUTO) 0.5 % (0.0-5.0); EOSINOPHILS % (AUTO) 1.7 % (0.0-8.0); MEAN CORPUSCULAR HEMOGLOBIN 29.2 pg (27.0-33.0); MONOCYTES % (AUTO) 12.5 % (3.0-13.0); PLATELET COUNT (AUTO) 267 K/uL (130-400); RED BLOOD CELL COUNT(AUTO) 4.07 MIL/uL (4.00-5.50); RED CELL DISTRIBUTION WIDTH 12.7 % (11.0-15.5); WHITE BLOOD COUNT (AUTO) 8.8 K/uL (4.8-10.8)
[2020-02-23 05:46] LABS: ALBUMIN 2.9 g/dL (3.5-5.0); BILIRUBIN,TOTAL 0.7 mg/dL (0.2-1.0); CREATININE 0.7 mg/dL (0.5-1.5); POTASSIUM 3.5 mmol/L (3.5-5.1); TOTAL PROTEIN, SERUM 6.5 g/dL (6.0-8.3)
[2020-02-23] MEDS: POTASSIUM CHLORIDE 20 MEQ ERTAB PO PRN ×2 (06:33→20:21)
--- NOTE | 2020-02-23 06:33 | NUR ---
MEDS PT JUST HAD HER SHOWER, TOLERATED ACTIVITY WELL. DUE KCL DOSE PER PROTOCOL STARTED. PIV NOTED TO BE LEAKING, DISCONTINUED SITE WITH CATHETER INTACT. RE-INSERTED G20 TO RT HAND. PT TOLERATED RE-INSERTION WELL. FOR MORE CARE.
[2020-02-23 08:00] VITALS: BP 134/66
[2020-02-23] MEDS: FAMOTIDINE 20MG TAB 20 MG TAB PO SCH ×2 (09:40→20:20)
[2020-02-23] MEDS: TAMSULOSIN HCL 0.4 MG CAP.ER.24H PO SCH (09:40)
[2020-02-23] MEDS: ENOXAPARIN SODIUM 30 MG/0.3 ML SQ SCH (09:40)
[2020-02-23] MEDS: MEROPENEM 1 GM VIAL IVP SCH ×3 (09:40→23:40)
[2020-02-23 12:00] VITALS: BP 113/67
[2020-02-23 16:00] VITALS: BP 112/66
--- NOTE | 2020-02-23 16:24 | NUR ---
DCP CM met with pt discussed dc plans. Pt is independent prior to admission, lives at home with spouse. Pt has a walker. Denies any other equipments/services. Feels safe to go back home, still drives, spouse able to assist with transportation and needs as necessary. DC plan to home once stable. CM to continue to follow up. Addendum: 02/23/20 at 1625 by HANG CASTELLON LVN CM Amended: Links added.
[2020-02-23] MEDS ORDERED: MAGNESIUM 2GM PREMIX 50ML 50 ML IV PRN (19:30)
[2020-02-23 20:00] VITALS: BP 116/72
[2020-02-24] VITALS (7 sets, daily range): BP systolic 110–189; BP diastolic 61–109
[2020-02-24 04:58] LABS: BASOPHILS % (AUTO) 0.7 % (0.0-5.0); EOSINOPHILS % (AUTO) 4.1 % (0.0-8.0); HEMATOCRIT 34.3 % (36-48); LYMPHOCYTES % (AUTO) 26.5 % (21.0-51.0); MEAN CORPUSCULAR HEMOGLOBIN 29.1 pg (27.0-33.0); MEAN CORPUSCULAR HGB CONC 33.8 g/dL (32.0-36.0); MEAN CORPUSCULAR VOLUME 86.2 fL (79-99); MONOCYTES % (AUTO) 12.4 % (3.0-13.0); PLATELET COUNT (AUTO) 285 K/uL (130-400); RED BLOOD CELL COUNT(AUTO) 3.98 MIL/uL (4.00-5.50); RED CELL DISTRIBUTION WIDTH 12.5 % (11.0-15.5); WHITE BLOOD COUNT (AUTO) 7.3 K/uL (4.8-10.8)
[2020-02-24 05:31] LABS: ALBUMIN 2.8 g/dL (3.5-5.0); BILIRUBIN,TOTAL 0.6 mg/dL (0.2-1.0); CREATININE 0.6 mg/dL (0.5-1.5); POTASSIUM 4.3 mmol/L (3.5-5.1); TOTAL PROTEIN, SERUM 6.4 g/dL (6.0-8.3)
[2020-02-24] MEDS: MEROPENEM 1 GM VIAL IVP SCH ×3 (06:22→23:14)
[2020-02-24] MEDS: FAMOTIDINE 20MG TAB 20 MG TAB PO SCH ×2 (09:31→20:20)
[2020-02-24] MEDS: TAMSULOSIN HCL 0.4 MG CAP.ER.24H PO SCH (09:31)
[2020-02-24] MEDS: SODIUM CHLORIDE 0.9% 1000ML 1,000 ML IV SCH ×2 (09:31→16:38)
[2020-02-24] MEDS: ENOXAPARIN SODIUM 30 MG/0.3 ML SQ SCH (09:32)
[2020-02-24] MEDS: HYDROCODONE/ACETAMINOPHEN 5/325 MG TAB PO PRN ×2 (18:10→22:20)
[2020-02-25 03:49] VITALS: BP 107/60
[2020-02-25] MEDS: MEROPENEM 1 GM VIAL IVP SCH ×2 (06:00→15:29)
[2020-02-25 06:38] LABS: BASOPHILS % (AUTO) 0.8 % (0.0-5.0); EOSINOPHILS % (AUTO) 6.1 % (0.0-8.0); HEMATOCRIT 35.2 % (36-48); LYMPHOCYTES % (AUTO) 37.6 % (21.0-51.0); MEAN CORPUSCULAR HEMOGLOBIN 28.5 pg (27.0-33.0); MEAN CORPUSCULAR HGB CONC 32.7 g/dL (32.0-36.0); MEAN CORPUSCULAR VOLUME 87.3 fL (79-99); MONOCYTES % (AUTO) 11.3 % (3.0-13.0); NEUTROPHILS % (AUTO) 43.9 % (40.0-77.0); PLATELET COUNT (AUTO) 314 K/uL (130-400); RED BLOOD CELL COUNT(AUTO) 4.03 MIL/uL (4.00-5.50); RED CELL DISTRIBUTION WIDTH 12.8 % (11.0-15.5); WHITE BLOOD COUNT (AUTO) 6.1 K/uL (4.8-10.8)
[2020-02-25 06:58] LABS: ALBUMIN 2.7 g/dL (3.5-5.0); BILIRUBIN,TOTAL 0.4 mg/dL (0.2-1.0); CREATININE 0.7 mg/dL (0.5-1.5)
[2020-02-25] MEDS: TAMSULOSIN HCL 0.4 MG CAP.ER.24H PO SCH (08:23)
[2020-02-25] MEDS: FAMOTIDINE 20MG TAB 20 MG TAB PO SCH ×2 (08:23→20:10)
[2020-02-25] MEDS: SODIUM CHLORIDE 0.9% 1000ML 1,000 ML IV SCH (08:24)
[2020-02-25 08:25] VITALS: BP 132/55
[2020-02-25] MEDS: ENOXAPARIN SODIUM 30 MG/0.3 ML SQ SCH (08:25)
--- NOTE | 2020-02-25 11:00 | NUR ---
CM Note: [facility] pending approval CM met with pt discussed MD recommendations for LTAC pt will need abx iv Ertapenem X [address] Taylor. Pt agreeable, DONG signed for [facility]. Faxed order, clinicals to [facility], confirmation received. Spoke to Kathy nieto/Daniel, made aware of new referral, aware dcp once pt has approval. EMS arranged for today in case, primary nurse to call [facility] once pt ready to DC. MOT semi-filled pending to be completed once approval received, flagged in chart. Primary nurse aware. CM to continue to follow up.
[2020-02-25 14:45] VITALS: BP 110/89
[2020-02-25] MEDS: HYDROCODONE/ACETAMINOPHEN 5/325 MG TAB PO PRN (17:54)
[2020-02-25 18:50] VITALS: BP 121/71
[2020-02-25 19:51] VITALS: BP 115/64
[2020-02-25 23:52] VITALS: BP 110/77
[2020-02-26] MEDS: MEROPENEM 1 GM VIAL IVP SCH ×4 (00:13→23:24)
[2020-02-26 03:50] VITALS: BP 115/66
[2020-02-26 08:00] VITALS: BP 112/57
[2020-02-26] MEDS: FAMOTIDINE 20MG TAB 20 MG TAB PO SCH ×2 (09:34→20:30)
[2020-02-26] MEDS: ENOXAPARIN SODIUM 30 MG/0.3 ML SQ SCH (09:34)
[2020-02-26] MEDS: TAMSULOSIN HCL 0.4 MG CAP.ER.24H PO SCH (09:34)
[2020-02-26] MEDS: HYDROCODONE/ACETAMINOPHEN 5/325 MG TAB PO PRN (09:35)
[2020-02-26] MEDS: SERTRALINE HCL 50 MG TABLET PO SCH (09:51)
[2020-02-26 11:31] VITALS: BP 122/50
[2020-02-26] MEDS: CHLORHEXIDINE GLUCONATE 473 ML MOUTHWASH MM SCH ×2 (12:41→20:31)
--- NOTE | 2020-02-26 15:35 | NUR ---
CM Note: Jordana pending approval CM spoke to Kathy Kaplan, updated clinicals received and forwarded to insurance. Pt pending approval at this time. MOT semi-filled pending to be completed once approval received. EMS arranged for today in case pt received approval, primary nurse to call [facility] once pt ready to DC. Primary nurse aware. CM to cont to follow up.
[2020-02-26 16:00] VITALS: BP 101/50
[2020-02-26 20:00] VITALS: BP 113/59
--- NOTE | 2020-02-26 20:30 | NUR ---
MEDS SHIFT ASSESSMENT DONE, PLEASE REFER TO CHART. DUE MEDS ADMINISTERED, TOLERATED WELL. PCP IN TO ASSIST PT TO SHOWER. Addendum: 02/26/20 at 2347 by BEBA ROLLINS RN RN Amended: Links added.
[2020-02-26] MEDS: ZOLPIDEM TARTRATE 5 MG TAB PO PRN (20:31)
[2020-02-26 23:42] VITALS: BP 107/56
--- NOTE | 2020-02-27 01:40 | NUR ---
ROUNDS PT RESTING WELL, FAIRLY ASLEEP. NO DISTRESS NOTED. KEPT UNDISTURBED FOR NOW. WILL CONTINUE TO MONITOR. CALL LIGHT WITHIN REACH.
[2020-02-27 03:48] VITALS: BP 120/65
[2020-02-27 08:00] VITALS: BP 115/64
[2020-02-27] MEDS: MEROPENEM 1 GM VIAL IVP SCH ×2 (08:25→16:00)
[2020-02-27] MEDS: TAMSULOSIN HCL 0.4 MG CAP.ER.24H PO SCH (08:26)
[2020-02-27] MEDS: SERTRALINE HCL 50 MG TABLET PO SCH (08:26)
[2020-02-27] MEDS: FAMOTIDINE 20MG TAB 20 MG TAB PO SCH ×2 (08:26→20:21)
[2020-02-27] MEDS: ENOXAPARIN SODIUM 30 MG/0.3 ML SQ SCH (08:27)
[2020-02-27] MEDS: CHLORHEXIDINE GLUCONATE 473 ML MOUTHWASH MM SCH ×2 (08:28→20:22)
[2020-02-27 12:00] VITALS: BP 121/60
--- NOTE | 2020-02-27 12:57 | NUR ---
CM Note: [facility] denial CM spoke to Kathy Kaplan, received initial denial from insurance. As per Kathy reached out to Dr Taylor and Dr Lau for peer to peer, declined at this time. As per Dr Lau follow through w/SNF placement. Patient given update, made aware of denial, agreeable for Plan B initialy for [facility], pt verbalized go ahead and sent it to [facility]. Primary nurse Kay FRASER made aware will follow through w/ SNF placement to [facility]. CM to continue to follow up.
[2020-02-27] MEDS: HYDROCODONE/ACETAMINOPHEN 5/325 MG TAB PO PRN ×2 (13:12→20:21)
--- NOTE | 2020-02-27 13:41 | NUR ---
BAMBI Note: [facility] pending approval CM faxed order, clinicals, PAS[facility], Covid Transfer Form, covid result 02/21 to [facility], confirmation received. Spoke to Daria nieto/[facility], aware pt had denial for [facility] placement, dcp once approved. Ordered covid pcr today, pending to be colleted by Nurse Kay FRASER, pending result, will send result once available. Pt pending approval. Primary nurse aware. CM to contine to follow up.
--- NOTE | 2020-02-27 14:04 | NUR ---
DR. SERRANO IN TO SEE PT. NO NEW ORDERS.
[2020-02-27 16:00] VITALS: BP 101/51
[2020-02-27 20:00] VITALS: BP 135/79
[2020-02-27] MEDS: ZOLPIDEM TARTRATE 5 MG TAB PO PRN (20:21)
--- NOTE | 2020-02-27 20:25 | NUR ---
MEDS SHIFT ASSESSMENT DONE, PLEASE REFER TO CHART. PT CLAIMS OF FLANK PAINS. DUE MEDS GIVEN , NORCO GIVEN FOR PAINS. KEPT RESTED AND COMFORTABLE WILL RE-ASSESS PT. Addendum: 02/28/20 at 0112 by BEBA ROLLINS RN RN Amended: Links added.
--- NOTE | 2020-02-27 21:30 | NUR ---
SWAB NASAL SWAB DONE FOR [facility] VIRUS PCR TEST. SET TO LAB FOR ANALYSIS.
[2020-02-28] VITALS: BP 114/51
[2020-02-28] MEDS: MEROPENEM 1 GM VIAL IVP SCH ×3 (00:11→16:42)
--- NOTE | 2020-02-28 02:00 | NUR ---
ROUNDS PT FAIRLY ASLEEP. NO DISTRESS NOTED. KEPT UNDISTURBED FOR NOW. WILL CONTINUE TO MONITOR. CALL LIGHT WITHIN REACH.
[2020-02-28 04:00] VITALS: BP 119/69
[2020-02-28 05:14] LABS: BASOPHILS % (AUTO) 1.3 % (0.0-5.0); EOSINOPHILS % (AUTO) 6.3 % (0.0-8.0); HEMATOCRIT 38.8 % (36-48); LYMPHOCYTES % (AUTO) 42.5 % (21.0-51.0); MEAN CORPUSCULAR HGB CONC 33.8 g/dL (32.0-36.0); MONOCYTES % (AUTO) 9.6 % (3.0-13.0); PLATELET COUNT (AUTO) 378 K/uL (130-400); RED BLOOD CELL COUNT(AUTO) 4.51 MIL/uL (4.00-5.50); RED CELL DISTRIBUTION WIDTH 12.6 % (11.0-15.5); WHITE BLOOD COUNT (AUTO) 6.2 K/uL (4.8-10.8)
[2020-02-28 05:26] LABS: CREATININE 0.7 mg/dL (0.5-1.5); MAGNESIUM 2.1 mg/dL (1.80-2.40); POTASSIUM 3.7 mmol/L (3.5-5.1)
--- NOTE | 2020-02-28 06:28 | NUR ---
ROUNDS PT RESTING WELL. NO DISTRESS NOTED. NO CONCERNS VERBALIZED. KEPT COMFORTABLE IN BED. FOR MORE CARE.
[2020-02-28 08:00] VITALS: BP 114/61
--- NOTE | 2020-02-28 10:01 | NUR ---
[facility] Call placed this am to Daria Busby. She mentions that ins. auth remains pending at this time. Per Daria she will f/u on Sunday.
[2020-02-28] MEDS: FAMOTIDINE 20MG TAB 20 MG TAB PO SCH ×2 (10:10→20:47)
[2020-02-28] MEDS: SERTRALINE HCL 50 MG TABLET PO SCH (10:10)
[2020-02-28] MEDS: TAMSULOSIN HCL 0.4 MG CAP.ER.24H PO SCH (10:10)
[2020-02-28] MEDS: ENOXAPARIN SODIUM 30 MG/0.3 ML SQ SCH (10:11)
[2020-02-28] MEDS: CHLORHEXIDINE GLUCONATE 473 ML MOUTHWASH MM SCH ×2 (10:14→20:48)
[2020-02-28 12:00] VITALS: BP 119/75
[2020-02-28 16:00] VITALS: BP 130/68
[2020-02-28 20:18] VITALS: BP 128/71
[2020-02-28] MEDS: ZOLPIDEM TARTRATE 5 MG TAB PO PRN (21:30)
[2020-02-29] MEDS: MEROPENEM 1 GM VIAL IVP SCH ×4 (00:06→23:00)
[2020-02-29 00:09] VITALS: BP 109/62
[2020-02-29 04:01] VITALS: BP 115/67
[2020-02-29 08:00] VITALS: BP 123/57
[2020-02-29] MEDS: TAMSULOSIN HCL 0.4 MG CAP.ER.24H PO SCH (08:55)
[2020-02-29] MEDS: FAMOTIDINE 20MG TAB 20 MG TAB PO SCH ×2 (08:55→20:22)
[2020-02-29] MEDS: SERTRALINE HCL 50 MG TABLET PO SCH (08:55)
[2020-02-29] MEDS: ENOXAPARIN SODIUM 30 MG/0.3 ML SQ SCH (08:56)
[2020-02-29] MEDS: CHLORHEXIDINE GLUCONATE 473 ML MOUTHWASH MM SCH ×2 (09:01→20:23)
[2020-02-29 11:00] VITALS: BP 107/71
[2020-02-29 16:00] VITALS: BP 95/55
--- NOTE | 2020-02-29 17:14 | NUR ---
FELT A LITTLE WARM AND LOOKED SL. FLUSHED. T, 97.8. STATES FEELS TIRED OTHERWISE OK.
[2020-02-29 20:43] VITALS: BP 137/79
[2020-03-01 00:07] VITALS: BP 108/62
[2020-03-01 04:08] VITALS: BP 92/51
[2020-03-01] MEDS: MEROPENEM 1 GM VIAL IVP SCH ×2 (05:56→06:11)
[2020-03-01 08:00] VITALS: BP 124/63
[2020-03-01] MEDS: TAMSULOSIN HCL 0.4 MG CAP.ER.24H PO SCH (09:37)
[2020-03-01] MEDS: FAMOTIDINE 20MG TAB 20 MG TAB PO SCH (09:37)
[2020-03-01] MEDS: SERTRALINE HCL 50 MG TABLET PO SCH (09:37)
[2020-03-01] MEDS: ENOXAPARIN SODIUM 30 MG/0.3 ML SQ SCH (09:38)
[2020-03-01] MEDS: CHLORHEXIDINE GLUCONATE 473 ML MOUTHWASH MM SCH (09:39)
[2020-03-01 11:00] VITALS: BP 105/68
--- NOTE | 2020-03-01 11:00 | NUR ---
CM Note: [facility] approval CM spoke to Daria w/[facility], pt has approval. verified regading PICC, pt will need Merrem Q8hrs X 7 days on dc. As per Daria ok for pt to go w/PIV. Lou RESAW FEEDER made aware, will dc pt today, RESAW FEEDER to enter DC order, med recon done. Daria aware pt will need [facility] transport van today. Primary nurse Kayleigh(juan antonio) aware. CM to continue to follow up.
--- NOTE | 2020-03-01 15:18 | NUR ---
RDSCREEN - LOS X 9 Pt admitted with Acute pyelonephritis. Pt with improved PO intake, tolerating Regular diet order. Food preferences obtained last wake as RD notified of Pt complaint of foods receiving. Spoke with Pt today and Pt stated improved service and improved PO intake. Pt pending [facility] to [facility]. Please notify as additional nutrition concerns arise. Thank you.
== END 2020-03-01 17:05 | DRG 872 ==
LOC: EDH 14:35 → EDHIP 18:50 → 3CH 19:52 → UNDODISIN 03-01 16:45
PROVIDERS: ADMIT Family Medicine; ATTEND Family Medicine
DX: A41.50 Gram-negative sepsis, unspecified (principal); N13.6 Pyonephrosis; Z16.24 Resistance to multiple antibiotics; N39.0 Urinary tract infection, site not specified; M47.815 Spondylosis without myelopathy or radiculopathy, thoracolumbar region; M79.10 Myalgia, unspecified site; I10 Essential (primary) hypertension; E66.9 Obesity, unspecified; F32.9 Major depressive disorder, single episode, unspecified; F41.9 Anxiety disorder, unspecified; B96.20 Unspecified Escherichia coli [E. coli] as the cause of diseases classified elsewhere; R49.0 Dysphonia; N29 Other disorders of kidney and ureter in diseases classified elsewhere; Z20.828 Contact with and (suspected) exposure to other viral communicable diseases; E87.6 Hypokalemia; Z23 Encounter for immunization; Z82.49 Family history of ischemic heart disease and other diseases of the circulatory system; Z82.0 Family history of epilepsy and other diseases of the nervous system; Z87.440 Personal history of urinary (tract) infections; Z87.442 Personal history of urinary calculi; Z90.710 Acquired absence of both cervix and uterus; Z98.891 History of uterine scar from previous surgery; Z79.899 Other long term (current) drug therapy; Z68.29 Body mass index [BMI] 29.0-29.9, adult
CPT/HCPCS: 36415; 71045; 74176; 74400; 80048; 80053; 81001; 82550; 83605; 83735; 83874; 84145; 84484; 85025; 87040; 87077; 87088; 87186; 87426; 93005; G0378; J1170; J1650; J1885; J2185; J2405; J3475; J7030; Q9967; U0003

== ENCOUNTER 2020-03-16 10:18 | Inpatient (IN) | payer BC ==
[~2020-03-16] VITALS: Ht 157.5 cm; Wt 68.2 kg
[~2020-03-16 10:18] MED LIST changes: -BACL20TA PO; -CRAN250C2 PO; +NAPR-1023 PO; -TAMS-1 PO; -TRAZ-185 PO
[2020-03-16] MEDS ORDERED: SODIUM CHLORIDE 0.9% 1000ML 1,000 ML IV ONE (10:32)
[2020-03-16] MEDS ORDERED: ACETAMINOPHEN EXTRA STRENGTH 500 MG TABLET ONE (10:33)
[2020-03-16] MEDS ORDERED: MEROPENEM 1 GM VIAL ONE ×2 (10:34→19:45)
[2020-03-16] MEDS ORDERED: ONDANSETRON HCL 4 MG/2 ML VIAL ONE ×2 (10:52→19:57)
[2020-03-16] MEDS ORDERED: HYDROMORPHONE HCL 0.5 MG/0.5 ML ML ONE (10:52)
[2020-03-16 11:10] LABS: CARBON DIOXIDE 25 mmol/L (21-32); CHLORIDE 103 mmol/L (101-111); CREATININE 0.8 mg/dL (0.5-1.5); GLOMERULAR FILTR. RATE CALC 78 mL/min (>60); GLUCOSE,RANDOM 115 mg/dL (70-105); POTASSIUM 3.2 mmol/L (3.5-5.1); SODIUM SERUM 139 mmol/L (136-145); UREA NITROGEN, BLOOD 13 mg/dL (7-18)
[2020-03-16 11:17] LABS: APPEARANCE,URINE CLOUDY (CLEAR); BILIRUBIN,URINE NEGATIVE (NEGATIVE); COLOR,URINE YELLOW (YELLOW); GLUCOSE, URINE (UA) NEGATIVE (NEGATIVE); KETONES,URINE NEGATIVE (NEGATIVE); LEUKOCYTE ESTERASE ,URINE LARGE (NEGATIVE); NITRATE,URINE POSITIVE (NEGATIVE); OCCULT BLOOD,URINE MODERATE (NEGATIVE); PROTEIN,URINE TRACE mg/dL (NEGATIVE); UROBILINOGEN,URINE 0.2 mg/dL (0.2-1.0)
[2020-03-16 11:21] LABS: ALANINE AMINOTRANSFERASE 28 U/L (12-78); ALBUMIN 3.8 g/dL (3.5-5.0); ASPARTATE AMINOTRANSFERASE 26 U/L (10-37); BILIRUBIN,TOTAL 1.4 mg/dL (0.2-1.0); CREATINE KINASE, TOTAL 46 U/L (21-232); MYOGLOBIN 31 ng/mL (10-92); TOTAL PROTEIN, SERUM 7.2 g/dL (6.0-8.3); TROPONIN I < 0.04 ng/mL (0.00-0.06)
[2020-03-16 11:29] LABS: BASOPHILS % (AUTO) 0.4 % (0.0-5.0); EOSINOPHILS % (AUTO) 0.2 % (0.0-8.0); HEMATOCRIT 39.3 % (36-48); LYMPHOCYTES % (AUTO) 11.5 % (21.0-51.0); MEAN CORPUSCULAR HEMOGLOBIN 29.8 pg (27.0-33.0); MEAN CORPUSCULAR HGB CONC 34.4 g/dL (32.0-36.0); MEAN CORPUSCULAR VOLUME 86.8 fL (79-99); MONOCYTES % (AUTO) 11.2 % (3.0-13.0); NEUTROPHILS % (AUTO) 76.2 % (40.0-77.0); PLATELET COUNT (AUTO) 221 K/uL (130-400); RED BLOOD CELL COUNT(AUTO) 4.53 MIL/uL (4.00-5.50); RED CELL DISTRIBUTION WIDTH 13.4 % (11.0-15.5)
[2020-03-16 11:39] LABS: BACTERIA,URINE Many /HPF (None Seen); RBC,URINE 0-1 /HPF (0-1); SQUAMOUS EPITHELIAL CELL,UR Rare /HPF (0-2); WBC,URINE TNTC /HPF (0-1)
[2020-03-16 11:48] LABS: INR 0.93 (0.85-1.15); PARTIAL THROMBOPLASTIN TIME 33.3 SEC (26.3-35.5); PROTHROMBIN TIME 10.1 SEC (9.6-11.6)
[2020-03-16] MEDS ORDERED: MORPHINE SULFATE 2 MG/ML 1ML SYG ONE ×2 (15:39→19:45)
[2020-03-16] MEDS ORDERED: LIDOCAINE HCL-MPF 1% 2ML VIAL IV PRN (19:45)
[2020-03-16] MEDS ORDERED: POTASSIUM CHLORIDE 10% ELIXIR 20 MEQ/15 ML UDCUP PO PRN (19:45)
[2020-03-16] MEDS ORDERED: ACETAMINOPHEN 325 MG TAB PO PRN (19:45)
[2020-03-16] MEDS ORDERED: SODIUM CHLORIDE 0.9% 50 ML IV ONE (19:45)
[2020-03-16] MEDS ORDERED: POTASSIUM CHLORIDE 20MEQ/100ML 100 ML IV PRN (19:45)
[2020-03-16] MEDS ORDERED: FAMOTIDINE 20MG TAB 20 MG TAB ONE (19:57)
[2020-03-16] MEDS: MEROPENEM 500 MG VIAL IVP SCH (20:00)
[2020-03-16 22:35] VITALS: BP 123/90
[2020-03-16] MEDS: FAMOTIDINE 20MG TAB 20 MG TAB PO SCH (22:50)
[2020-03-16] MEDS: ACETAMINOPHEN-CODEINE 300/30MG TAB PO PRN (22:51)
[2020-03-17] MEDS: MORPHINE SULFATE 2 MG/ML 1ML SYG IVP PRN ×3 (01:13→10:09)
[2020-03-17] MEDS: KETOROLAC TROMETHAMINE 15MG/ML IV SCH ×2 (01:15→23:59)
[2020-03-17] MEDS: MEROPENEM 500 MG VIAL IVP SCH ×3 (04:00→19:40)
[2020-03-17 04:05] VITALS: BP 97/55
[2020-03-17 05:48] LABS: BASOPHILS % (AUTO) 0.4 % (0.0-5.0); EOSINOPHILS % (AUTO) 0.8 % (0.0-8.0); HEMATOCRIT 37.9 % (36-48); LYMPHOCYTES % (AUTO) 14.8 % (21.0-51.0); MEAN CORPUSCULAR HEMOGLOBIN 28.9 pg (27.0-33.0); MEAN CORPUSCULAR VOLUME 87.5 fL (79-99); MONOCYTES % (AUTO) 14.7 % (3.0-13.0); NEUTROPHILS % (AUTO) 68.9 % (40.0-77.0); PLATELET COUNT (AUTO) 200 K/uL (130-400); RED BLOOD CELL COUNT(AUTO) 4.33 MIL/uL (4.00-5.50); RED CELL DISTRIBUTION WIDTH 13.4 % (11.0-15.5); WHITE BLOOD COUNT (AUTO) 11.7 K/uL (4.8-10.8)
[2020-03-17 06:00] LABS: CREATININE 0.7 mg/dL (0.5-1.5); POTASSIUM 3.6 mmol/L (3.5-5.1); TOTAL PROTEIN, SERUM 6.5 g/dL (6.0-8.3)
[2020-03-17] MEDS: ONDANSETRON HCL 4 MG/2 ML VIAL IVP PRN ×2 (06:35→10:08)
[2020-03-17 07:30] VITALS: BP 110/58
[2020-03-17] MEDS: FAMOTIDINE 20MG TAB 20 MG TAB PO SCH ×2 (10:08→19:41)
[2020-03-17] MEDS: ENOXAPARIN SODIUM 30 MG/0.3 ML SQ SCH (10:08)
[2020-03-17] MEDS: HYDROMORPHONE 1 MG/1 ML AMP IVP PRN ×3 (10:48→19:43)
[2020-03-17 11:00] VITALS: BP 122/72
[2020-03-17] MEDS ORDERED: DIAZEPAM 5 MG TABLET PO SCH (11:15)
[2020-03-17] MEDS: LACTULOSE 20 GM/30 ML UDCUP PO PRN (13:22)
[2020-03-17] MEDS: SODIUM CHLORIDE 0.9% 1000ML 1,000 ML IV SCH ×2 (15:17→23:58)
--- NOTE | 2020-03-17 15:39 | NUR ---
DCP CM met with pt discussed dc plans. Pt is independent prior to admission, lives at home with spouse. Pt has a walker w/wheels, walker, shower chair, cane. Denies any other equipments/services. Feels safe to go back home, spouse and daughter able to assist with transportation and needs as necessary. Pt added daughter as emergency contact Marquise Sinclair in case needed. DC plan to home once stable. CM to continue to follow up. Addendum: 03/17/20 at 1541 by HANG CASTELLON LVN CM Amended: Links added.
[2020-03-17 16:00] VITALS: BP 110/68
[2020-03-17] MEDS ORDERED: PEG 3350/NA SULF,BICARB,CL/KCL 4000 ML SOLN PO ONE (19:30)
[2020-03-17 20:12] VITALS: BP 108/61
[2020-03-18 00:16] VITALS: BP 112/66
[2020-03-18] MEDS: HYDROMORPHONE 1 MG/1 ML AMP IVP PRN ×5 (01:24→21:55)
[2020-03-18 03:51] LABS: BASOPHILS % (AUTO) 0.4 % (0.0-5.0); EOSINOPHILS % (AUTO) 2.5 % (0.0-8.0); HEMATOCRIT 33.2 % (36-48); LYMPHOCYTES % (AUTO) 24.1 % (21.0-51.0); MEAN CORPUSCULAR HEMOGLOBIN 28.8 pg (27.0-33.0); MEAN CORPUSCULAR HGB CONC 32.8 g/dL (32.0-36.0); MEAN CORPUSCULAR VOLUME 87.8 fL (79-99); MONOCYTES % (AUTO) 16.3 % (3.0-13.0); NEUTROPHILS % (AUTO) 56.3 % (40.0-77.0); PLATELET COUNT (AUTO) 201 K/uL (130-400); RED BLOOD CELL COUNT(AUTO) 3.78 MIL/uL (4.00-5.50); RED CELL DISTRIBUTION WIDTH 13.6 % (11.0-15.5)
[2020-03-18 03:55] LABS: CREATININE 0.7 mg/dL (0.5-1.5); POTASSIUM 3.5 mmol/L (3.5-5.1)
[2020-03-18] MEDS: MEROPENEM 500 MG VIAL IVP SCH ×3 (04:07→19:59)
[2020-03-18 04:24] VITALS: BP 110/66
[2020-03-18 08:11] VITALS: BP 107/65
[2020-03-18] MEDS ORDERED: IOHEXOL-350 75 ML VIAL IV ONE (08:13)
[2020-03-18] MEDS: SODIUM CHLORIDE 0.9% 1000ML 1,000 ML IV SCH ×2 (09:45→19:59)
[2020-03-18] MEDS: ASPIRIN 81MG TAB.CHEW PO SCH (10:04)
[2020-03-18] MEDS: SERTRALINE HCL 50 MG TABLET PO SCH (10:04)
[2020-03-18] MEDS: FAMOTIDINE 20MG TAB 20 MG TAB PO SCH ×2 (10:04→19:59)
[2020-03-18] MEDS: ENOXAPARIN SODIUM 30 MG/0.3 ML SQ SCH (10:05)
[2020-03-18 11:52] VITALS: BP 104/67
[2020-03-18 16:25] VITALS: BP 119/73
[2020-03-18] MEDS: ONDANSETRON HCL 4 MG/2 ML VIAL IVP PRN (17:53)
[2020-03-18 19:18] VITALS: BP 138/78
[2020-03-18] MEDS: KETOROLAC TROMETHAMINE 15MG/ML IV SCH (19:57)
[2020-03-19] VITALS (25 sets, daily range): BP systolic 70–156; BP diastolic 63–98
[2020-03-19] MEDS: HYDROMORPHONE 1 MG/1 ML AMP IVP PRN ×4 (01:25→21:17)
[2020-03-19 03:53] LABS: BASOPHILS % (AUTO) 0.7 % (0.0-5.0); EOSINOPHILS % (AUTO) 3.8 % (0.0-8.0); HEMATOCRIT 31.2 % (36-48); LYMPHOCYTES % (AUTO) 36.7 % (21.0-51.0); MEAN CORPUSCULAR HEMOGLOBIN 29.1 pg (27.0-33.0); MEAN CORPUSCULAR HGB CONC 33.3 g/dL (32.0-36.0); MEAN CORPUSCULAR VOLUME 87.4 fL (79-99); MONOCYTES % (AUTO) 11.7 % (3.0-13.0); NEUTROPHILS % (AUTO) 46.9 % (40.0-77.0); PLATELET COUNT (AUTO) 192 K/uL (130-400); RED BLOOD CELL COUNT(AUTO) 3.57 MIL/uL (4.00-5.50); RED CELL DISTRIBUTION WIDTH 13.3 % (11.0-15.5); WHITE BLOOD COUNT (AUTO) 5.5 K/uL (4.8-10.8)
[2020-03-19 04:00] LABS: CREATININE 0.6 mg/dL (0.5-1.5); POTASSIUM 3.3 mmol/L (3.5-5.1)
[2020-03-19] MEDS: MEROPENEM 500 MG VIAL IVP SCH ×3 (04:13→20:57)
[2020-03-19] MEDS: SODIUM CHLORIDE 0.9% 1000ML 1,000 ML IV SCH ×2 (05:11→15:45)
--- NOTE | 2020-03-19 07:40 | NUR ---
NOTE AAOX3. DNEIES PAIN AT THIS TIME. CAME IN WITH PYELONEPHRITIS TO RIGHT SIDE. DR KUMAR IS CONSULTED FOR STENT PLACEMENT. PATIENT NPO SHE WILL GO TO SURGERY TODAY. HAS BEEN MEDICATED THROUGHOUT THE NIGHT FOR PAIN NEEDED. OTHERWISE SHE IS STABLE, NO OTHER PROBLEM VOICED.
[2020-03-19] MEDS: ENOXAPARIN SODIUM 30 MG/0.3 ML SQ SCH (09:00)
[2020-03-19] MEDS: ASPIRIN 81MG TAB.CHEW PO SCH (09:00)
[2020-03-19] MEDS: FAMOTIDINE 20MG TAB 20 MG TAB PO SCH ×2 (10:53→20:57)
[2020-03-19] MEDS: SERTRALINE HCL 50 MG TABLET PO SCH (10:53)
[2020-03-19] MEDS ORDERED: SUCCINYLCHOLINE 200MG/10ML SYR ONE (14:05)
[2020-03-19] MEDS ORDERED: PROPOFOL 10 MG/ML 20ML VIAL IV ONE (14:06)
[2020-03-19] MEDS ORDERED: ONDANSETRON HCL 4 MG/2 ML VIAL ONE (14:06)
[2020-03-19] MEDS ORDERED: FENTANYL CITRATE PF 50 MCG/1 ML 2ML VIAL ONE (14:06)
[2020-03-19] MEDS ORDERED: DEXAMETHASONE SOD PHOSPHATE 10MG/ML 1ML VIAL ONE (14:06)
[2020-03-19] MEDS ORDERED: LIDOCAINE PF 2% 5ML ABBOJECT ONE (14:06)
[2020-03-19] MEDS ORDERED: MIDAZOLAM HCL 1 MG/ML 2ML VIAL ONE (14:06)
[2020-03-19] MEDS ORDERED: IOHEXOL-350 50ML VIAL IV ONE (14:23)
[2020-03-19] MEDS ORDERED: EPHEDRINE SULFATE 50 MG/ML AMPULE ONE (14:33)
[2020-03-20] MEDS: KETOROLAC TROMETHAMINE 15MG/ML IV SCH (01:15)
[2020-03-20] MEDS: SODIUM CHLORIDE 0.9% 1000ML 1,000 ML IV SCH ×3 (01:45→21:45)
[2020-03-20 03:45] VITALS: BP 134/71
[2020-03-20] MEDS: MEROPENEM 500 MG VIAL IVP SCH ×3 (04:00→19:57)
[2020-03-20 05:47] LABS: BASOPHILS % (AUTO) 1.1 % (0.0-5.0); EOSINOPHILS % (AUTO) 3.3 % (0.0-8.0); HEMATOCRIT 33.3 % (36-48); LYMPHOCYTES % (AUTO) 35.6 % (21.0-51.0); MEAN CORPUSCULAR HGB CONC 33.9 g/dL (32.0-36.0); MEAN CORPUSCULAR VOLUME 85.6 fL (79-99); MONOCYTES % (AUTO) 12.7 % (3.0-13.0); NEUTROPHILS % (AUTO) 46.9 % (40.0-77.0); PLATELET COUNT (AUTO) 218 K/uL (130-400); RED BLOOD CELL COUNT(AUTO) 3.89 MIL/uL (4.00-5.50); RED CELL DISTRIBUTION WIDTH 13.1 % (11.0-15.5); WHITE BLOOD COUNT (AUTO) 4.6 K/uL (4.8-10.8)
[2020-03-20 05:56] LABS: CREATININE 0.5 mg/dL (0.5-1.5); POTASSIUM 3.4 mmol/L (3.5-5.1)
[2020-03-20 08:00] VITALS: BP 132/80
[2020-03-20] MEDS: SERTRALINE HCL 50 MG TABLET PO SCH (09:27)
[2020-03-20] MEDS: ASPIRIN 81MG TAB.CHEW PO SCH (09:27)
[2020-03-20] MEDS: FAMOTIDINE 20MG TAB 20 MG TAB PO SCH ×2 (09:27→19:57)
[2020-03-20] MEDS: ENOXAPARIN SODIUM 30 MG/0.3 ML SQ SCH (09:27)
[2020-03-20] MEDS: HYDROMORPHONE 1 MG/1 ML AMP IVP PRN ×2 (10:15→19:59)
[2020-03-20 11:18] VITALS: BP 138/76
[2020-03-20 16:00] VITALS: BP 120/75
[2020-03-20 19:44] VITALS: BP 142/85
[2020-03-20 23:19] VITALS: BP 108/62
[2020-03-21] MEDS: KETOROLAC TROMETHAMINE 15MG/ML IV SCH (01:15)
[2020-03-21] MEDS: MEROPENEM 500 MG VIAL IVP SCH ×3 (03:57→20:11)
[2020-03-21 04:21] VITALS: BP 135/81
[2020-03-21 05:53] LABS: BASOPHILS % (AUTO) 1.1 % (0.0-5.0); EOSINOPHILS % (AUTO) 5.7 % (0.0-8.0); MEAN CORPUSCULAR HEMOGLOBIN 28.7 pg (27.0-33.0); MEAN CORPUSCULAR HGB CONC 33.6 g/dL (32.0-36.0); MEAN CORPUSCULAR VOLUME 85.3 fL (79-99); MONOCYTES % (AUTO) 11.6 % (3.0-13.0); NEUTROPHILS % (AUTO) 36.2 % (40.0-77.0); PLATELET COUNT (AUTO) 238 K/uL (130-400); RED BLOOD CELL COUNT(AUTO) 3.87 MIL/uL (4.00-5.50); WHITE BLOOD COUNT (AUTO) 4.6 K/uL (4.8-10.8)
[2020-03-21 06:05] LABS: CREATININE 0.5 mg/dL (0.5-1.5); POTASSIUM 3.1 mmol/L (3.5-5.1)
[2020-03-21] MEDS: POTASSIUM CHLORIDE 20 MEQ ERTAB PO PRN ×3 (06:33→11:38)
[2020-03-21 08:00] VITALS: BP 156/70
[2020-03-21] MEDS: FAMOTIDINE 20MG TAB 20 MG TAB PO SCH ×2 (08:07→20:11)
[2020-03-21] MEDS: SERTRALINE HCL 50 MG TABLET PO SCH (08:07)
[2020-03-21] MEDS: ASPIRIN 81MG TAB.CHEW PO SCH (08:07)
[2020-03-21] MEDS: ENOXAPARIN SODIUM 30 MG/0.3 ML SQ SCH (08:08)
[2020-03-21] MEDS: SODIUM CHLORIDE 0.9% 1000ML 1,000 ML IV SCH ×2 (08:09→16:40)
[2020-03-21 11:00] VITALS: BP 129/69
[2020-03-21] MEDS: HYDROMORPHONE 1 MG/1 ML AMP IVP PRN (11:40)
[2020-03-21 16:00] VITALS: BP 137/67
[2020-03-21 19:56] VITALS: BP 152/76
[2020-03-21] MEDS: LACTULOSE 20 GM/30 ML UDCUP PO PRN (20:11)
[2020-03-21] MEDS: MORPHINE SULFATE 2 MG/ML 1ML SYG IVP PRN (20:21)
--- NOTE | 2020-03-21 22:37 | NUR ---
SLEEP Pt states she takes Diazepam for sleep at home,medicated as per e AUG.
[2020-03-21 23:17] VITALS: BP 139/73
[2020-03-22 04:06] VITALS: BP 135/52
[2020-03-22] MEDS: SODIUM CHLORIDE 0.9% 1000ML 1,000 ML IV SCH (04:06)
[2020-03-22] MEDS: MEROPENEM 500 MG VIAL IVP SCH ×2 (04:06→13:34)
[2020-03-22 05:12] LABS: BASOPHILS % (AUTO) 0.7 % (0.0-5.0); EOSINOPHILS % (AUTO) 8.6 % (0.0-8.0); HEMATOCRIT 34.9 % (36-48); LYMPHOCYTES % (AUTO) 44.3 % (21.0-51.0); MEAN CORPUSCULAR HEMOGLOBIN 29.3 pg (27.0-33.0); MEAN CORPUSCULAR HGB CONC 34.4 g/dL (32.0-36.0); MEAN CORPUSCULAR VOLUME 85.1 fL (79-99); MONOCYTES % (AUTO) 9.5 % (3.0-13.0); NEUTROPHILS % (AUTO) 36.2 % (40.0-77.0); PLATELET COUNT (AUTO) 274 K/uL (130-400); RED CELL DISTRIBUTION WIDTH 13.2 % (11.0-15.5); WHITE BLOOD COUNT (AUTO) 5.4 K/uL (4.8-10.8)
[2020-03-22 05:29] LABS: CREATININE 0.6 mg/dL (0.5-1.5); MAGNESIUM 1.6 mg/dL (1.80-2.40); POTASSIUM 3.4 mmol/L (3.5-5.1)
[2020-03-22] MEDS: POTASSIUM CHLORIDE 20 MEQ ERTAB PO PRN ×2 (05:33→13:41)
[2020-03-22 08:00] VITALS: BP 133/98
[2020-03-22] MEDS: ASPIRIN 81MG TAB.CHEW PO SCH (08:13)
[2020-03-22] MEDS: FAMOTIDINE 20MG TAB 20 MG TAB PO SCH (08:13)
[2020-03-22] MEDS: ENOXAPARIN SODIUM 30 MG/0.3 ML SQ SCH (08:13)
[2020-03-22] MEDS: SERTRALINE HCL 50 MG TABLET PO SCH (08:13)
[2020-03-22] MEDS: ACETAMINOPHEN-CODEINE 300/30MG TAB PO PRN (08:17)
--- NOTE | 2020-03-22 08:49 | NUR ---
DC HOME, EXPECTING DC WITH POSSIBLE PO ABXVS DAVE Addendum: 03/23/20 at 0850 by BRITTANY CONROY RN CM Amended: Links added.
[2020-03-22 11:46] VITALS: BP 120/74
[2020-03-22] MEDS: MORPHINE SULFATE 2 MG/ML 1ML SYG IVP PRN (13:34)
[2020-03-22] MEDS ORDERED: IBUPROFEN 800 MG TAB PO PRN (14:45)
[2020-03-22] MEDS ORDERED: SULF1TAB42 PO (14:54)
[2020-03-22] MEDS ORDERED: IBUP-2077 PO (14:55)
[2020-03-22 16:00] VITALS: BP 125/73
--- NOTE | 2020-03-22 18:10 | NUR ---
DISCHARGE INSTRUCTION PROVIDED TO PATIENT,ALONG WITH PRESCRIPTION ,SIDE EFFECTS AND SIGNS TO WATCH OUT FOR FOR ALLERGIC REACTION.INFORMED PATIENT ALSO ON APPOINTMENTS .PATIENT VERBALIZED UNDERSTANDING
== END 2020-03-22 18:15 | disposition home or self-care (01) | DRG 854 ==
LOC: EDH 10:18 → EDHIP 14:51 → 3BH 22:03
PROVIDERS: ADMIT Hospitalist; ATTEND Hospitalist
PROC: 0T738DZ Dilation of Right Kidney Pelvis with Intraluminal Device, Via Natural or Artificial Opening Endoscopic (ICD-10-PCS; principal; 2020-03-19 14:12)
PROC: BT1D1ZZ Fluoroscopy of Right Kidney, Ureter and Bladder using Low Osmolar Contrast (ICD-10-PCS; 2020-03-19 14:12)
DX: A41.50 Gram-negative sepsis, unspecified (principal); N13.6 Pyonephrosis; Z16.24 Resistance to multiple antibiotics; N13.8 Other obstructive and reflux uropathy; B96.20 Unspecified Escherichia coli [E. coli] as the cause of diseases classified elsewhere; K59.00 Constipation, unspecified; E87.6 Hypokalemia; I10 Essential (primary) hypertension; Z96.0 Presence of urogenital implants; E83.59 Other disorders of calcium metabolism; F32.9 Major depressive disorder, single episode, unspecified; M79.10 Myalgia, unspecified site; N29 Other disorders of kidney and ureter in diseases classified elsewhere; Z86.19 Personal history of other infectious and parasitic diseases; Z87.440 Personal history of urinary (tract) infections; Z87.442 Personal history of urinary calculi; Z88.0 Allergy status to penicillin; Z98.891 History of uterine scar from previous surgery; Z82.49 Family history of ischemic heart disease and other diseases of the circulatory system; Z82.0 Family history of epilepsy and other diseases of the nervous system
CPT/HCPCS: 36415; 71045; 74176; 74400; 74420; 80048; 80053; 81001; 82550; 82948; 83605; 83735; 83874; 84484; 85025; 85610; 85730; 87040; 87077; 87088; 87186; 93005; A4344; C1758; G0378; J0330; J1100; J1170; J1650; J1885; J2001; J2185; J2250; J2405; J2704; J3010; J3480; J3490; J7030; Q9967

== ENCOUNTER 2020-05-14 04:11 | Inpatient (IN) | payer BC ==
[~2020-05-14] VITALS: Ht 157.5 cm; Wt 59.9 kg
[~2020-05-14 04:11] MED LIST changes: +CRANBERRY PO; -NAPR-1023 PO
[2020-05-14 04:31] LABS: APPEARANCE,URINE Cloudy (CLEAR); BILIRUBIN,URINE Negative (NEGATIVE); COLOR,URINE Yellow (YELLOW); GLUCOSE, URINE (UA) Negative (NEGATIVE); KETONES,URINE Negative (NEGATIVE); LEUKOCYTE ESTERASE ,URINE Large (NEGATIVE); NITRATE,URINE Positive (NEGATIVE); OCCULT BLOOD,URINE Large (NEGATIVE); PH,URINE 8.5 (5.0-8.0); PROTEIN,URINE 300 mg/dL (NEGATIVE); UROBILINOGEN,URINE 0.2 mg/dL (0.2-1.0)
[2020-05-14] MEDS ORDERED: ONDANSETRON HCL 4 MG/2 ML VIAL ONE ×2 (04:36→08:58)
[2020-05-14] MEDS ORDERED: SODIUM CHLORIDE 0.9% 1000ML 1,000 ML IV ONE (04:36)
[2020-05-14 04:41] LABS: BACTERIA,URINE Moderate /HPF (None Seen); MUCUS,URINE None Seen LPF (None Seen); SQUAMOUS EPITHELIAL CELL,UR None Seen /HPF (0-2); WBC,URINE 51-100 /HPF (0-1)
[2020-05-14] MEDS ORDERED: KETOROLAC TROMETHAMINE 30MG/ML ONE (04:49)
[2020-05-14] MEDS ORDERED: CEFTRIAXONE SODIUM 1 GM ONE (05:10)
[2020-05-14 05:11] LABS: BASOPHILS % (AUTO) 0.9 % (0.0-5.0); EOSINOPHILS % (AUTO) 2.9 % (0.0-8.0); HEMATOCRIT 38.8 % (36-48); LYMPHOCYTES % (AUTO) 22.5 % (21.0-51.0); MEAN CORPUSCULAR HEMOGLOBIN 28.7 pg (27.0-33.0); MEAN CORPUSCULAR HGB CONC 33.8 g/dL (32.0-36.0); MEAN CORPUSCULAR VOLUME 84.9 fL (79-99); MONOCYTES % (AUTO) 11.6 % (3.0-13.0); NEUTROPHILS % (AUTO) 61.9 % (40.0-77.0); PLATELET COUNT (AUTO) 258 K/uL (130-400); RED BLOOD CELL COUNT(AUTO) 4.57 MIL/uL (4.00-5.50); RED CELL DISTRIBUTION WIDTH 13.4 % (11.0-15.5); WHITE BLOOD COUNT (AUTO) 8.1 K/uL (4.8-10.8)
[2020-05-14 05:19] LABS: INR 0.89 (0.85-1.15); PARTIAL THROMBOPLASTIN TIME 27.7 SEC (26.3-35.5); PROTHROMBIN TIME 9.7 SEC (9.6-11.6)
[2020-05-14] MEDS: LACTATED RINGERS 1000ML 1,000 ML IV SCH (05:35)
[2020-05-14 05:39] LABS: CARBON DIOXIDE 23 mmol/L (21-32); CHLORIDE 105 mmol/L (101-111); CREATININE 0.7 mg/dL (0.5-1.5); GLOMERULAR FILTR. RATE CALC 91 mL/min (>60); GLUCOSE,RANDOM 98 mg/dL (70-105); POTASSIUM 3.4 mmol/L (3.5-5.1); SODIUM SERUM 141 mmol/L (136-145); UREA NITROGEN, BLOOD 8 mg/dL (7-18)
[2020-05-14 05:44] LABS: ALANINE AMINOTRANSFERASE 19 U/L (12-78); ALBUMIN 3.5 g/dL (3.5-5.0); ASPARTATE AMINOTRANSFERASE 25 U/L (10-37); CREATINE KINASE, TOTAL 42 U/L (21-232); LIPASE < 50 U/L (114-286)
[2020-05-14] MEDS ORDERED: MEROPENEM 1 GM VIAL IVP SCH ×2 (08:00→09:00)
[2020-05-14] MEDS ORDERED: LACTATED RINGERS 1000ML 1,000 ML IV ONE (08:57)
[2020-05-14] MEDS ORDERED: MEROPENEM 1 GM VIAL ONE (08:57)
[2020-05-14] MEDS ORDERED: 1/2 NORMAL SALINE 1,000 ML IV ONE (08:59)
[2020-05-14] MEDS ORDERED: PREGABALIN 75 MG CAPSULE ONE (08:59)
[2020-05-14] MEDS ORDERED: HYDROMORPHONE HCL 0.5 MG/0.5 ML ML ONE ×2 (11:02→18:04)
[2020-05-14] MEDS ORDERED: POTASSIUM CHLORIDE 20 MEQ ERTAB PO SCH (15:45)
[2020-05-14] MEDS ORDERED: POTASSIUM CHLORIDE 20 MEQ ERTAB PO ONE (18:04)
[2020-05-15] MEDS ORDERED: MEROPENEM 1 GM VIAL ONE ×2 (01:22→21:50)
[2020-05-15] MEDS ORDERED: SODIUM CHLORIDE 0.9% 100 ML IV ONE (01:22)
[2020-05-15] MEDS ORDERED: HYDROMORPHONE HCL 0.5 MG/0.5 ML ML ONE ×3 (07:12→22:02)
[2020-05-15 07:23] LABS: BASOPHILS % (AUTO) 0.8 % (0.0-5.0); EOSINOPHILS % (AUTO) 3.7 % (0.0-8.0); HEMATOCRIT 38.9 % (36-48); LYMPHOCYTES % (AUTO) 33.3 % (21.0-51.0); MEAN CORPUSCULAR HEMOGLOBIN 29.1 pg (27.0-33.0); MEAN CORPUSCULAR HGB CONC 33.4 g/dL (32.0-36.0); MONOCYTES % (AUTO) 11.9 % (3.0-13.0); PLATELET COUNT (AUTO) 253 K/uL (130-400); RED BLOOD CELL COUNT(AUTO) 4.47 MIL/uL (4.00-5.50); RED CELL DISTRIBUTION WIDTH 13.5 % (11.0-15.5); WHITE BLOOD COUNT (AUTO) 7.1 K/uL (4.8-10.8)
[2020-05-15 07:35] LABS: CARBON DIOXIDE 27 mmol/L (21-32); CHLORIDE 106 mmol/L (101-111); CREATININE 0.6 mg/dL (0.5-1.5); GLOMERULAR FILTR. RATE CALC 108 mL/min (>60); GLUCOSE,RANDOM 95 mg/dL (70-105); POTASSIUM 3.6 mmol/L (3.5-5.1); SODIUM SERUM 142 mmol/L (136-145); UREA NITROGEN, BLOOD 7 mg/dL (7-18)
[2020-05-15] MEDS ORDERED: LACTATED RINGERS 1000ML 1,000 ML IV ONE (07:44)
[2020-05-16] MEDS ORDERED: MEROPENEM 1 GM VIAL ONE (05:00)
[2020-05-16] MEDS ORDERED: SODIUM CHLORIDE 0.9% 100 ML IV ONE (05:01)
[2020-05-16 05:43] VITALS: BP 135/74
[2020-05-16 05:53] LABS: BASOPHILS % (AUTO) 0.8 % (0.0-5.0); EOSINOPHILS % (AUTO) 6.9 % (0.0-8.0); LYMPHOCYTES % (AUTO) 37.4 % (21.0-51.0); MEAN CORPUSCULAR HEMOGLOBIN 29.2 pg (27.0-33.0); MEAN CORPUSCULAR HGB CONC 33.4 g/dL (32.0-36.0); MEAN CORPUSCULAR VOLUME 87.4 fL (79-99); MONOCYTES % (AUTO) 10.6 % (3.0-13.0); NEUTROPHILS % (AUTO) 44.1 % (40.0-77.0); PLATELET COUNT (AUTO) 260 K/uL (130-400); RED BLOOD CELL COUNT(AUTO) 4.35 MIL/uL (4.00-5.50); RED CELL DISTRIBUTION WIDTH 13.4 % (11.0-15.5); WHITE BLOOD COUNT (AUTO) 6.3 K/uL (4.8-10.8)
[2020-05-16 06:09] LABS: CREATININE 0.7 mg/dL (0.5-1.5); POTASSIUM 3.8 mmol/L (3.5-5.1)
[2020-05-16] MEDS: MEROPENEM 1 GM VIAL IVP SCH ×3 (06:15→21:27)
[2020-05-16 07:51] VITALS: BP 138/74
[2020-05-16] MEDS: ACETAMINOPHEN-CODEINE 300/30MG TAB PO PRN (08:52)
[2020-05-16 11:06] VITALS: BP 128/74
[2020-05-16] MEDS: LACTATED RINGERS 1000ML 1,000 ML IV SCH (12:24)
[2020-05-16] MEDS: HYDROMORPHONE 1 MG/1 ML AMP IVP PRN ×2 (12:30→19:00)
[2020-05-16 14:48] VITALS: BP 116/71
[2020-05-16 20:46] VITALS: BP 128/72
[2020-05-16] MEDS: HYDROXYZINE HCL 25 MG TABLET PO SCH (23:31)
[2020-05-16 23:54] VITALS: BP 117/70
[2020-05-17 04:41] VITALS: BP 132/74
[2020-05-17] MEDS: MEROPENEM 1 GM VIAL IVP SCH ×3 (05:16→21:22)
[2020-05-17] MEDS: LACTATED RINGERS 1000ML 1,000 ML IV SCH ×2 (05:16→17:09)
[2020-05-17 08:52] VITALS: BP 147/74
[2020-05-17] MEDS: HYDROMORPHONE 1 MG/1 ML AMP IVP PRN ×3 (10:53→21:29)
[2020-05-17 11:52] VITALS: BP 116/74
[2020-05-17 16:55] VITALS: BP 123/65
[2020-05-17 20:00] VITALS: BP 133/81
[2020-05-17] MEDS: HYDROXYZINE HCL 25 MG TABLET PO SCH (21:22)
[2020-05-17 23:00] VITALS: BP 122/67
[2020-05-18] VITALS (21 sets, daily range): BP systolic 102–154; BP diastolic 11–78
[2020-05-18] MEDS: LACTATED RINGERS 1000ML 1,000 ML IV SCH ×2 (05:48→18:27)
[2020-05-18] MEDS: MEROPENEM 1 GM VIAL IVP SCH ×3 (05:48→20:38)
[2020-05-18] MEDS: HYDROMORPHONE 1 MG/1 ML AMP IVP PRN ×4 (05:56→20:39)
[2020-05-18] MEDS ORDERED: HYDROMORPHONE HCL 0.5 MG/0.5 ML ML IVP SCH (10:15)
[2020-05-18] MEDS ORDERED: LIDOCAINE PF 2% 5ML ABBOJECT ONE (12:14)
[2020-05-18] MEDS ORDERED: ROCURONIUM 10MG/1ML SYR 10 MG/ML ML ONE (12:15)
[2020-05-18] MEDS ORDERED: FENTANYL CITRATE PF 50 MCG/1 ML 2ML VIAL ONE (12:15)
[2020-05-18] MEDS ORDERED: PROPOFOL 10 MG/ML 20ML VIAL IV ONE ×2 (12:15→17:09)
[2020-05-18] MEDS ORDERED: SUCCINYLCHOLINE 200MG/10ML SYR ONE (12:21)
[2020-05-18] MEDS ORDERED: IOHEXOL-350 50ML VIAL IV ONE (12:28)
[2020-05-18] MEDS ORDERED: MIDAZOLAM HCL 1 MG/ML 2ML VIAL ONE (17:07)
[2020-05-18] MEDS ORDERED: MEPERIDINE-PF 25 MG/ML SYG ONE (17:41)
[2020-05-18] MEDS ORDERED: EPHEDRINE SULFATE 50 MG/ML AMPULE ONE (17:49)
[2020-05-18] MEDS ORDERED: NEOSTIGMINE 5MG/5ML SYR IV ONE (18:57)
[2020-05-18] MEDS ORDERED: GLYCOPYRROLATE 1 MG/5 ML SYRINGE ONE (18:57)
[2020-05-18] MEDS: HYDROXYZINE HCL 25 MG TABLET PO SCH (20:38)
[2020-05-18] MEDS: SODIUM CHLORIDE 0.9% 1000ML 1,000 ML IV SCH (21:45)
[2020-05-19 03:44] VITALS: BP 116/66
[2020-05-19] MEDS: MEROPENEM 1 GM VIAL IVP SCH ×3 (05:09→21:44)
[2020-05-19] MEDS: SODIUM CHLORIDE 0.9% 1000ML 1,000 ML IV SCH ×2 (05:10→18:02)
[2020-05-19] MEDS: ACETAMINOPHEN-CODEINE 300/30MG TAB PO PRN ×3 (05:21→20:49)
[2020-05-19 05:33] LABS: HEMATOCRIT 37.1 % (36-48); MEAN CORPUSCULAR HEMOGLOBIN 28.5 pg (27.0-33.0); MEAN CORPUSCULAR HGB CONC 33.2 g/dL (32.0-36.0); MEAN CORPUSCULAR VOLUME 86.1 fL (79-99); RED BLOOD CELL COUNT(AUTO) 4.31 MIL/uL (4.00-5.50); RED CELL DISTRIBUTION WIDTH 13.1 % (11.0-15.5); WHITE BLOOD COUNT (AUTO) 5.3 K/uL (4.8-10.8)
[2020-05-19 06:08] LABS: CREATININE 0.7 mg/dL (0.5-1.5); POTASSIUM 3.6 mmol/L (3.5-5.1)
[2020-05-19 08:14] VITALS: BP 120/75
[2020-05-19 11:23] VITALS: BP_SYST 100; BP_SYST 151; BP_DIAS 67; BP_DIAS 94
[2020-05-19 15:30] LABS: INR 0.92 (0.85-1.15); PARTIAL THROMBOPLASTIN TIME 29.6 SEC (26.3-35.5)
[2020-05-19 16:00] VITALS: BP 122/58
[2020-05-19 20:08] VITALS: BP 127/75
[2020-05-19] MEDS: HYDROXYZINE HCL 25 MG TABLET PO SCH (21:44)
[2020-05-20 00:10] VITALS: BP 119/73
[2020-05-20] MEDS: SODIUM CHLORIDE 0.9% 1000ML 1,000 ML IV SCH ×3 (01:05→20:20)
[2020-05-20 04:02] VITALS: BP 152/78
[2020-05-20] MEDS: MEROPENEM 1 GM VIAL IVP SCH ×3 (05:44→20:20)
[2020-05-20] MEDS: ACETAMINOPHEN-CODEINE 300/30MG TAB PO PRN ×2 (06:29→20:29)
[2020-05-20 08:58] VITALS: BP 143/80
[2020-05-20 11:44] VITALS: BP 127/71
[2020-05-20 16:53] VITALS: BP 151/81
[2020-05-20 20:00] VITALS: BP 157/79
[2020-05-20] MEDS: HYDROXYZINE HCL 25 MG TABLET PO SCH (23:05)
[2020-05-20] MEDS ORDERED: HYDROXYZINE HCL 25 MG TABLET PO SCH (23:15)
[2020-05-21] VITALS: BP 154/84
[2020-05-21 04:00] VITALS: BP 132/58
[2020-05-21] MEDS: MEROPENEM 1 GM VIAL IVP SCH ×3 (04:55→21:35)
[2020-05-21 08:00] VITALS: BP 139/82
[2020-05-21 12:00] VITALS: BP 138/88
[2020-05-21 16:00] VITALS: BP 153/84
[2020-05-21 20:43] VITALS: BP 131/80
[2020-05-21] MEDS ORDERED: FAMOTIDINE 20MG TAB 20 MG TAB ONE (21:33)
[2020-05-21] MEDS: HYDROXYZINE HCL 25 MG TABLET PO SCH (21:34)
[2020-05-21] MEDS ORDERED: FAMOTIDINE 20MG TAB 20 MG TAB PO SCH (22:35)
[2020-05-22] VITALS (8 sets, daily range): BP systolic 120–142; BP diastolic 52–82
[2020-05-22] MEDS: MEROPENEM 1 GM VIAL IVP SCH ×3 (05:45→19:44)
[2020-05-22] MEDS: ACETAMINOPHEN-CODEINE 300/30MG TAB PO PRN (16:30)
[2020-05-22] MEDS ORDERED: FAMOTIDINE/PF 20 MG/2 ML VIAL IV ONE (19:28)
[2020-05-22] MEDS: FAMOTIDINE 20MG TAB 20 MG TAB PO SCH (19:44)
[2020-05-22] MEDS: HYDROXYZINE HCL 25 MG TABLET PO SCH (19:50)
[2020-05-23 03:39] VITALS: BP 124/64
[2020-05-23] MEDS: MEROPENEM 1 GM VIAL IVP SCH ×3 (05:15→20:20)
[2020-05-23 08:00] VITALS: BP 117/69
[2020-05-23] MEDS: FAMOTIDINE 20MG TAB 20 MG TAB PO SCH ×2 (08:28→20:20)
[2020-05-23] MEDS: SERTRALINE HCL 50 MG TABLET PO SCH (08:28)
[2020-05-23 12:00] VITALS: BP 120/73
[2020-05-23 16:00] VITALS: BP 143/82
[2020-05-23] MEDS: ACETAMINOPHEN-CODEINE 300/30MG TAB PO PRN (16:01)
[2020-05-23 20:06] VITALS: BP 131/73
[2020-05-24 00:55] VITALS: BP 113/53
[2020-05-24 03:58] VITALS: BP 106/53
[2020-05-24] MEDS: MEROPENEM 1 GM VIAL IVP SCH ×2 (04:51→14:30)
[2020-05-24 07:55] VITALS: BP 119/73
[2020-05-24 11:39] VITALS: BP 127/73
[2020-05-24] MEDS: FAMOTIDINE 20MG TAB 20 MG TAB PO SCH (14:30)
[2020-05-24] MEDS: SERTRALINE HCL 50 MG TABLET PO SCH (14:30)
== END 2020-05-24 17:00 | disposition home health service (06) | DRG 660 ==
LOC: EDH 04:11 → EDHIP 07:08 → 4DH 05-16 05:16 → 3DH 05-20 06:17
PROVIDERS: ADMIT Family Medicine; ATTEND Family Medicine
PROC: BT1D1ZZ Fluoroscopy of Right Kidney, Ureter and Bladder using Low Osmolar Contrast (ICD-10-PCS; 2020-05-18)
PROC: 0T768DZ Dilation of Right Ureter with Intraluminal Device, Via Natural or Artificial Opening Endoscopic (ICD-10-PCS; principal; 2020-05-18 17:42)
PROC: 0TF38ZZ Fragmentation in Right Kidney Pelvis, Via Natural or Artificial Opening Endoscopic (ICD-10-PCS; 2020-05-18 17:42)
PROC: 0TF68ZZ Fragmentation in Right Ureter, Via Natural or Artificial Opening Endoscopic (ICD-10-PCS; 2020-05-18 17:42)
PROC: 0TP98DZ Removal of Intraluminal Device from Ureter, Via Natural or Artificial Opening Endoscopic (ICD-10-PCS; 2020-05-18 17:42)
PROC: 02HV33Z Insertion of Infusion Device into Superior Vena Cava, Percutaneous Approach (ICD-10-PCS; 2020-05-19)
PROC: B548ZZA Ultrasonography of Superior Vena Cava, Guidance (ICD-10-PCS; 2020-05-19)
DX: N13.6 Pyonephrosis (principal); Z16.24 Resistance to multiple antibiotics; Z16.12 Extended spectrum beta lactamase (ESBL) resistance; Z96.0 Presence of urogenital implants; B96.1 Klebsiella pneumoniae [K. pneumoniae] as the cause of diseases classified elsewhere; B96.20 Unspecified Escherichia coli [E. coli] as the cause of diseases classified elsewhere; F32.9 Major depressive disorder, single episode, unspecified; F41.9 Anxiety disorder, unspecified; G89.29 Other chronic pain; I10 Essential (primary) hypertension; R53.81 Other malaise; Z90.710 Acquired absence of both cervix and uterus; Z98.891 History of uterine scar from previous surgery; Z82.49 Family history of ischemic heart disease and other diseases of the circulatory system; Z82.0 Family history of epilepsy and other diseases of the nervous system; Z87.442 Personal history of urinary calculi; Z86.19 Personal history of other infectious and parasitic diseases; Z87.440 Personal history of urinary (tract) infections
CPT/HCPCS: 36415; 74176; 80048; 80053; 81001; 82550; 83605; 83690; 83735; 84145; 85025; 85027; 85610; 85730; 87040; 87077; 87088; 87186; A4344; C1758; C1769; C1894; C2617; G0378; J0330; J0696; J1170; J1885; J2001; J2175; J2185; J2250; J2405; J2704; J2710; J3010; J3490; J7030; J7120; Q9967

== ENCOUNTER → 2020-06-10 | Outpatient (CLI) | payer BC | END | disposition home or self-care (01) | LOC: RAH 11:48 | PROVIDERS: ATTEND Urology | DX: N20.0 Calculus of kidney (principal) | CPT/HCPCS: 74018; 76100 ==

== ENCOUNTER 2020-06-22 06:36 | Day surgery (SDC) | payer BC ==
[2020-06-18 09:05] LABS: BASOPHILS % (AUTO) 1.4 % (0.0-5.0); HEMATOCRIT 40.7 % (36-48); LYMPHOCYTES % (AUTO) 33.2 % (21.0-51.0); MEAN CORPUSCULAR HEMOGLOBIN 29.1 pg (27.0-33.0); MEAN CORPUSCULAR HGB CONC 32.9 g/dL (32.0-36.0); MEAN CORPUSCULAR VOLUME 88.3 fL (79-99); MONOCYTES % (AUTO) 8.9 % (3.0-13.0); NEUTROPHILS % (AUTO) 50.3 % (40.0-77.0); PLATELET COUNT (AUTO) 289 K/uL (130-400); RED BLOOD CELL COUNT(AUTO) 4.61 MIL/uL (4.00-5.50); RED CELL DISTRIBUTION WIDTH 13.4 % (11.0-15.5); WHITE BLOOD COUNT (AUTO) 6.3 K/uL (4.8-10.8)
[2020-06-18 09:17] LABS: INR 0.91 (0.85-1.15); PROTHROMBIN TIME 9.8 SEC (9.6-11.6)
[2020-06-18 09:18] LABS: PARTIAL THROMBOPLASTIN TIME 27.3 SEC (26.3-35.5)
[2020-06-18 09:19] LABS: ALBUMIN 3.7 g/dL (3.5-5.0); BILIRUBIN,TOTAL 0.5 mg/dL (0.2-1.0); CREATININE 0.7 mg/dL (0.5-1.5); POTASSIUM 3.9 mmol/L (3.5-5.1); TOTAL PROTEIN, SERUM 7.1 g/dL (6.0-8.3)
[2020-06-18 09:27] LABS: BILIRUBIN,URINE Negative (NEGATIVE); COLOR,URINE Yellow (YELLOW); GLUCOSE, URINE (UA) Negative (NEGATIVE); KETONES,URINE Negative (NEGATIVE); LEUKOCYTE ESTERASE ,URINE Large (NEGATIVE); NITRATE,URINE Negative (NEGATIVE); OCCULT BLOOD,URINE Small (NEGATIVE); PROTEIN,URINE POS 1+ mg/dL (NEGATIVE); UROBILINOGEN,URINE 0.2 mg/dL (0.2-1.0)
[2020-06-18 09:31] LABS: APPEARANCE,URINE HAZY (CLEAR)
[2020-06-18 09:53] LABS: BACTERIA,URINE Few /HPF (None Seen); RBC,URINE 0-1 /HPF (0-1)
[2020-06-21 09:51] VITALS: BP 146/83
[~2020-06-22] VITALS: Ht 157.5 cm; Wt 66.5 kg
[2020-06-22] VITALS (17 sets, daily range): BP systolic 98–145; BP diastolic 46–81
[~2020-06-22 06:36] MED LIST changes: +CITRIC ACID PO; -DIAZ5TAB4 PO; +LACTATED RINGERS 1000ML 1,000 ML IV ONE; +MEROPENEM 1 GM VIAL ONE; -ONDA22I IM; +SERT-439 PO; -SERT50TA12 PO
[2020-06-22] MEDS ORDERED: IOHEXOL-350 50ML VIAL IV ONE (06:53)
[2020-06-22] MEDS ORDERED: NEOSTIGMINE 5MG/5ML SYR IV ONE (07:19)
[2020-06-22] MEDS ORDERED: LIDOCAINE PF 100MG/5ML (2%) SYRINGE 5ML ONE (07:19)
[2020-06-22] MEDS ORDERED: ROCURONIUM 10MG/1ML SYR 10 MG/ML ML ONE (07:19)
[2020-06-22] MEDS ORDERED: ONDANSETRON 4MG INJ ONE (07:19)
[2020-06-22] MEDS ORDERED: PROPOFOL 10 MG/ML 20ML VIAL IV ONE ×2 (07:19→08:42)
[2020-06-22] MEDS ORDERED: SUCCINYLCHOLINE 200MG/10ML SYR ONE (07:19)
[2020-06-22] MEDS ORDERED: DEXAMETHASONE SOD PHOSPHATE 10MG/ML 1ML VIAL ONE (07:19)
[2020-06-22] MEDS ORDERED: MIDAZOLAM HCL 1 MG/ML 2ML VIAL ONE (07:19)
[2020-06-22] MEDS ORDERED: GLYCOPYRROLATE 1 MG/5 ML SYRINGE ONE (07:19)
[2020-06-22] MEDS ORDERED: FENTANYL CITRATE PF 50 MCG/1 ML 2ML VIAL ONE (07:20)
[2020-06-22] MEDS ORDERED: MEROPENEM 1 GM VIAL IV ONE (07:28)
[2020-06-22] MEDS ORDERED: LACTATED RINGERS 1000ML 1,000 ML IV SCH (08:00)
[2020-06-22] MEDS ORDERED: MEROPENEM 1 GM VIAL IVP PRN (08:00)
[2020-06-22] MEDS ORDERED: MEPERIDINE-PF 25 MG/ML SYG ONE ×2 (08:42→09:44)
[2020-08-16] MEDS ORDERED: AMOX500C2 PO (10:26)
[2020-08-16] MEDS ORDERED: MAGN400T25 PO (10:26)
== END 2020-06-22 11:05 ==
LOC: DAH 06:36
PROVIDERS: ATTEND Urology
DX: N20.0 Calculus of kidney (principal); K21.9 Gastro-esophageal reflux disease without esophagitis; E66.9 Obesity, unspecified; Z79.899 Other long term (current) drug therapy; Z20.828 Contact with and (suspected) exposure to other viral communicable diseases; Z79.01 Long term (current) use of anticoagulants
CPT/HCPCS: 36415; 50590; 52310; 71046; 74018; 80053; 81001; 85025; 85610; 85730; 87088; 93005; A4215; A4221; A4222; A4223; A4358; C1758; C1769; C9803; J0330; J1100; J2001; J2175 ×2; J2185 ×2; J2250; J2405; J2704 ×2; J2710; J3010; J3490; J7120 ×2; U0003; Q9967

== ENCOUNTER 2020-08-17 12:27 | Day surgery (SDC) | payer BC ==
[2020-08-11 14:58] LABS: MEAN CORPUSCULAR HEMOGLOBIN 28.8 pg (27.0-33.0); MEAN CORPUSCULAR HGB CONC 33.1 g/dL (32.0-36.0); MEAN CORPUSCULAR VOLUME 87.1 fL (79-99); RED BLOOD CELL COUNT(AUTO) 4.82 MIL/uL (4.00-5.50); RED CELL DISTRIBUTION WIDTH 12.9 % (11.0-15.5); WHITE BLOOD COUNT (AUTO) 7.2 K/uL (4.8-10.8)
[2020-08-11 14:59] LABS: BILIRUBIN,URINE Negative (NEGATIVE); COLOR,URINE Yellow (YELLOW); GLUCOSE, URINE (UA) Negative (NEGATIVE); KETONES,URINE Negative (NEGATIVE); LEUKOCYTE ESTERASE ,URINE Trace (NEGATIVE); NITRATE,URINE Negative (NEGATIVE); OCCULT BLOOD,URINE Negative (NEGATIVE); PROTEIN,URINE Negative (NEGATIVE)
[2020-08-11 15:06] LABS: APPEARANCE,URINE CLOUDY (CLEAR)
[2020-08-11 15:13] LABS: INR 0.93 (0.85-1.15); PROTHROMBIN TIME 10.2 SEC (9.6-11.6)
[2020-08-11 15:15] LABS: PARTIAL THROMBOPLASTIN TIME 26.8 SEC (26.3-35.5)
[2020-08-11 15:19] LABS: ALBUMIN 3.9 g/dL (3.5-5.0); BILIRUBIN,TOTAL 0.7 mg/dL (0.2-1.0); POTASSIUM 4.1 mmol/L (3.5-5.1); TOTAL PROTEIN, SERUM 7.2 g/dL (6.0-8.3)
[2020-08-11 15:22] LABS: BACTERIA,URINE Rare /HPF (None Seen); RBC,URINE 0-1 /HPF (0-1)
[2020-08-11 15:23] LABS: AMORPHOUS SEDIMENT,UR Moderate /LPF (None Seen); HYALINE CASTS, URINE 0-1 /LPF (0-1 /LPF); MUCUS,URINE Rare LPF (None Seen); SQUAMOUS EPITHELIAL CELL,UR Rare /HPF (0-2)
[2020-08-16 09:51] VITALS: BP 150/71
[~2020-08-17] VITALS: Ht 157.5 cm; Wt 68.5 kg
[2020-08-17] VITALS (16 sets, daily range): BP systolic 122–142; BP diastolic 60–79
[~2020-08-17 12:27] MED LIST changes: +AMOX500C2 PO; -CRANBERRY PO; -LACTATED RINGERS 1000ML 1,000 ML IV ONE; +MAGN400T25 PO; +MEROPENEM 1 GM VIAL IVP SCH; -MEROPENEM 1 GM VIAL ONE
[2020-08-17] MEDS ORDERED: MEROPENEM 1 GM VIAL IVP SCH (13:25)
[2020-08-17] MEDS: LACTATED RINGERS 1000ML 1,000 ML IV SCH ×2 (13:30→15:07)
[2020-08-17] MEDS ORDERED: DEXAMETHASONE SOD PHOSPHATE 10MG/ML 1ML VIAL ONE (13:46)
[2020-08-17] MEDS ORDERED: LIDOCAINE PF 2% 5ML ABBOJECT ONE (13:46)
[2020-08-17] MEDS ORDERED: GLYCOPYRROLATE 1 MG/5 ML SYRINGE ONE (13:46)
[2020-08-17] MEDS ORDERED: ONDANSETRON HCL 4 MG/2 ML VIAL ONE (13:46)
[2020-08-17] MEDS ORDERED: MIDAZOLAM HCL 1 MG/ML 2ML VIAL ONE (13:46)
[2020-08-17] MEDS ORDERED: PROPOFOL 10 MG/ML 20ML VIAL IV ONE (13:46)
[2020-08-17] MEDS ORDERED: NEOSTIGMINE 5MG/5ML SYR IV ONE (13:46)
[2020-08-17] MEDS ORDERED: SUCCINYLCHOLINE 200MG/10ML SYR ONE (13:46)
[2020-08-17] MEDS ORDERED: FENTANYL CITRATE PF 50 MCG/1 ML 2ML VIAL ONE (13:47)
[2020-08-17] MEDS ORDERED: ROCURONIUM 10MG/1ML SYR 10 MG/ML ML ONE (13:47)
[2020-08-17] MEDS ORDERED: MEPERIDINE-PF 25 MG/ML SYG ONE (15:32)
[2020-08-17] MEDS ORDERED: ACETAMINOPHEN-CODEINE 300/30MG TAB ONE (16:47)
== END 2020-08-17 17:35 | disposition home or self-care (01) ==
LOC: DAH 12:27
PROVIDERS: ATTEND Urology
DX: N20.0 Calculus of kidney (principal); Z20.822 Contact with and (suspected) exposure to COVID-19; J44.9 Chronic obstructive pulmonary disease, unspecified; D64.9 Anemia, unspecified; E66.9 Obesity, unspecified; Z79.01 Long term (current) use of anticoagulants; Z98.890 Other specified postprocedural states; Z90.710 Acquired absence of both cervix and uterus; Z98.891 History of uterine scar from previous surgery; Z79.899 Other long term (current) drug therapy; Z79.82 Long term (current) use of aspirin; Z86.19 Personal history of other infectious and parasitic diseases
CPT/HCPCS: 36415; 50590; 71046; 74018; 76100; 80053; 81001; 85027; 85610; 85730; 87088; 93005; A4215 ×2; A4221 ×2; A4222 ×2; A4223 ×2; A4600; A4649; A4663 ×2; C9803; J0330; J1100; J2001; J2175; J2185; J2250; J2405; J2704; J2710; J3490; J7120 ×3; U0003; J3010

== ENCOUNTER 2020-08-19 17:13 | Emergency (ER) | payer BC ==
[~2020-08-19 17:13] MED LIST changes: -MEROPENEM 1 GM VIAL IVP SCH
[2020-08-19 18:02] LABS: BASOPHILS % (AUTO) 1.2 % (0.0-5.0); EOSINOPHILS % (AUTO) 2.3 % (0.0-8.0); HEMATOCRIT 42.6 % (36-48); LYMPHOCYTES % (AUTO) 31.7 % (21.0-51.0); MEAN CORPUSCULAR HEMOGLOBIN 32.9 pg (27.0-33.0); MEAN CORPUSCULAR HGB CONC 38.5 g/dL (32.0-36.0); MEAN CORPUSCULAR VOLUME 85.5 fL (79-99); MONOCYTES % (AUTO) 7.8 % (3.0-13.0); NEUTROPHILS % (AUTO) 56.8 % (40.0-77.0); PLATELET COUNT (AUTO) 330 K/uL (130-400); RED BLOOD CELL COUNT(AUTO) 4.98 MIL/uL (4.00-5.50); RED CELL DISTRIBUTION WIDTH 12.9 % (11.0-15.5); WHITE BLOOD COUNT (AUTO) 8.4 K/uL (4.8-10.8)
[2020-08-19 18:05] LABS: APPEARANCE,URINE Cloudy (CLEAR); BILIRUBIN,URINE Negative (NEGATIVE); COLOR,URINE Yellow (YELLOW); GLUCOSE, URINE (UA) Negative (NEGATIVE); KETONES,URINE Negative (NEGATIVE); LEUKOCYTE ESTERASE ,URINE Trace (NEGATIVE); NITRATE,URINE Negative (NEGATIVE); OCCULT BLOOD,URINE Moderate (NEGATIVE); PROTEIN,URINE POS 2+ mg/dL (NEGATIVE); UROBILINOGEN,URINE 0.2 mg/dL (0.2-1.0)
[2020-08-19 18:18] LABS: CARBON DIOXIDE 27 mmol/L (21-32); CHLORIDE 104 mmol/L (101-111); CREATININE 0.9 mg/dL (0.5-1.5); GLOMERULAR FILTR. RATE CALC 68 mL/min (>60); GLUCOSE,RANDOM 119 mg/dL (70-105); POTASSIUM 3.1 mmol/L (3.5-5.1); SODIUM SERUM 143 mmol/L (136-145); UREA NITROGEN, BLOOD 10 mg/dL (7-18)
[2020-08-19 18:18] LABS: AMORPHOUS SEDIMENT,UR Moderate /LPF (None Seen); BACTERIA,URINE Few /HPF (None Seen); RBC,URINE 26-50 /HPF (0-1); WBC,URINE 0-1 /HPF (0-1)
[2020-08-19 18:21] LABS: INR 0.92 (0.85-1.15); PROTHROMBIN TIME 10.1 SEC (9.6-11.6)
[2020-08-19 18:22] LABS: PARTIAL THROMBOPLASTIN TIME 27.4 SEC (26.3-35.5)
[2020-08-19 18:31] LABS: ALANINE AMINOTRANSFERASE 28 U/L (12-78); ALBUMIN 4.3 g/dL (3.5-5.0); ASPARTATE AMINOTRANSFERASE 26 U/L (10-37); BILIRUBIN,TOTAL 0.6 mg/dL (0.2-1.0); CREATINE KINASE, TOTAL 42 U/L (21-232); MYOGLOBIN 24 ng/mL (10-92); TROPONIN I < 0.04 ng/mL (0.00-0.06)
[2020-08-19] MEDS ORDERED: ACETAMINOPHEN EXTRA STRENGTH 500 MG TABLET ONE (19:17)
[2020-08-19] MEDS ORDERED: POTASSIUM BICARB/CIT AC 25 MEQ TABLET.EFF ONE (21:23)
[2020-08-19] MEDS ORDERED: HYDROXYZINE HCL 25 MG TABLET ONE (21:23)
[2020-08-19] MEDS ORDERED: LEVOFLOXACIN 500 MG TABLET ONE (22:36)
== END 2020-08-19 23:16 | disposition home or self-care (01) ==
LOC: EDH 17:13
DX: R50.9 Fever, unspecified (principal); G47.00 Insomnia, unspecified; Z98.890 Other specified postprocedural states; Z88.0 Allergy status to penicillin
CPT/HCPCS: 36415; 71045; 74176; 80053; 81001; 82550; 83605; 83874; 84145; 84484; 85025; 85610; 85730; 86140; 86900; 86901; 87040; 87088; 93005; 96360; 96361

== ENCOUNTER → 2020-09-07 | Outpatient (CLI) | payer BC | END | disposition home or self-care (01) | LOC: RAH 15:28 | PROVIDERS: ATTEND Urology | DX: N20.0 Calculus of kidney (principal) | CPT/HCPCS: 74018; 76100 ==

== ENCOUNTER 2020-11-25 10:49 | Emergency (ER) | payer BC ==
[~2020-11-25] VITALS: Ht 157.5 cm; Wt 67.6 kg
[2020-11-25 10:51] VITALS: BP 160/88
[2020-11-25 11:31] LABS: APPEARANCE,URINE Clear (CLEAR); BILIRUBIN,URINE Negative (NEGATIVE); COLOR,URINE Yellow (YELLOW); GLUCOSE, URINE (UA) Negative (NEGATIVE); KETONES,URINE Negative (NEGATIVE); LEUKOCYTE ESTERASE ,URINE Moderate (NEGATIVE); NITRATE,URINE Negative (NEGATIVE); OCCULT BLOOD,URINE Trace (NEGATIVE); PH,URINE 8.5 (5.0-8.0); PROTEIN,URINE Trace mg/dL (NEGATIVE); UROBILINOGEN,URINE 0.2 mg/dL (0.2-1.0)
[2020-11-25 11:44] LABS: HEMATOCRIT 40.7 % (36-48); MEAN CORPUSCULAR HEMOGLOBIN 28.8 pg (27.0-33.0); MEAN CORPUSCULAR HGB CONC 33.7 g/dL (32.0-36.0); MEAN CORPUSCULAR VOLUME 85.7 fL (79-99); PLATELET COUNT (AUTO) 257 K/uL (130-400); RED BLOOD CELL COUNT(AUTO) 4.75 MIL/uL (4.00-5.50); RED CELL DISTRIBUTION WIDTH 13.5 % (11.0-15.5); WHITE BLOOD COUNT (AUTO) 9.1 K/uL (4.8-10.8)
[2020-11-25 11:50] LABS: CREATININE 0.7 mg/dL (0.5-1.5); POTASSIUM 3.7 mmol/L (3.5-5.1)
[2020-11-25 11:55] LABS: ALBUMIN 3.8 g/dL (3.5-5.0); TOTAL PROTEIN, SERUM 7.3 g/dL (6.0-8.3)
[2020-11-25 12:00] VITALS: BP 133/67
[2020-11-25 12:13] LABS: BACTERIA,URINE Moderate /HPF (None Seen)
[2020-11-25 12:14] LABS: SQUAMOUS EPITHELIAL CELL,UR Rare /HPF (0-2)
[2020-11-25] MEDS ORDERED: MORPHINE 4 MG SYG IV ONE ×2 (12:30→19:15)
[2020-11-25] MEDS ORDERED: ONDANSETRON 4MG INJ IVP ONE (12:30)
[2020-11-25] MEDS ORDERED: MELA10TA2 PO (12:46)
[2020-11-25] MEDS ORDERED: ONDA-104 PO (12:46)
[2020-11-25 12:52] LABS: LYMPHOCYTES % (MANUAL) 21 % (22-44); MONOCYTES % (MANUAL) 9 % (2-9); SEGMENTED NEUTROPHILS % 70 % (40-70)
[2020-11-25 12:53] LABS: MAN.DIFF COMMENT-IMPRESSION MANUAL DIF; PLATELET MORPHOLOGY COMMENT ADEQUATE
[2020-11-25 13:08] VITALS: BP 141/73
[2020-11-25] MEDS ORDERED: MORPHINE 4 MG SYG ONE (13:39)
[2020-11-25] MEDS ORDERED: ONDANSETRON 4MG INJ ONE (13:39)
[2020-11-25 14:11] VITALS: BP 133/73
[2020-11-25 16:56] VITALS: BP 131/69
[2020-11-25 18:22] VITALS: BP 128/64
[2020-11-25] MEDS ORDERED: CEFTRIAXONE 1G VIAL IVP SCH (19:15)
[2020-11-25] MEDS ORDERED: KETOROLAC 30MG VIAL (30MG/ML) IV ONE (19:15)
[2020-11-25] MEDS ORDERED: CIPR-278 PO (19:26)
[2020-11-25] MEDS ORDERED: 0.9%NACL 50ML 50 ML IV ONE (19:29)
== END 2020-11-25 20:18 | disposition home or self-care (01) ==
LOC: EDH 10:49
DX: N39.0 Urinary tract infection, site not specified (principal); N20.0 Calculus of kidney; R11.2 Nausea with vomiting, unspecified; Z90.710 Acquired absence of both cervix and uterus; Z98.890 Other specified postprocedural states; Z79.82 Long term (current) use of aspirin; Z79.899 Other long term (current) drug therapy
CPT/HCPCS: 36415; 74176; 80053; 81001; 85025; 87077; 87088; 87186; 96374; 96375; 96376; 99285; J0696; J1885; J2270 ×2; J2405

== ENCOUNTER 2020-12-19 14:06 | Emergency (ER) | payer BC ==
[~2020-12-19] VITALS: Ht 157.5 cm; Wt 68.5 kg
[~2020-12-19 14:06] MED LIST changes: -AMOX500C2 PO; +CIPR-278 PO; +MELA10TA2 PO; +ONDA-104 PO
[2020-12-19 15:04] VITALS: BP 141/70
[2020-12-19 15:11] LABS: BASOPHILS % (AUTO) 0.8 % (0.0-5.0); EOSINOPHILS % (AUTO) 3.3 % (0.0-8.0); HEMATOCRIT 39.5 % (36-48); LYMPHOCYTES % (AUTO) 39.3 % (21.0-51.0); MEAN CORPUSCULAR HEMOGLOBIN 29.1 pg (27.0-33.0); MEAN CORPUSCULAR HGB CONC 34.9 g/dL (32.0-36.0); MEAN CORPUSCULAR VOLUME 83.2 fL (79-99); MONOCYTES % (AUTO) 9.7 % (3.0-13.0); NEUTROPHILS % (AUTO) 46.8 % (40.0-77.0); PLATELET COUNT (AUTO) 294 K/uL (130-400); RED BLOOD CELL COUNT(AUTO) 4.75 MIL/uL (4.00-5.50); RED CELL DISTRIBUTION WIDTH 13.3 % (11.0-15.5); WHITE BLOOD COUNT (AUTO) 7.5 K/uL (4.8-10.8)
[2020-12-19 15:12] LABS: APPEARANCE,URINE Clear (CLEAR); BILIRUBIN,URINE Negative (NEGATIVE); COLOR,URINE Yellow (YELLOW); GLUCOSE, URINE (UA) Negative (NEGATIVE); KETONES,URINE Negative (NEGATIVE); LEUKOCYTE ESTERASE ,URINE Moderate (NEGATIVE); NITRATE,URINE Negative (NEGATIVE); OCCULT BLOOD,URINE Negative (NEGATIVE); PROTEIN,URINE Negative (NEGATIVE); UROBILINOGEN,URINE 0.2 mg/dL (0.2-1.0)
[2020-12-19 15:37] LABS: BACTERIA,URINE Rare /HPF (None Seen); RBC,URINE 0-1 /HPF (0-1); SQUAMOUS EPITHELIAL CELL,UR Rare /HPF (0-2); WBC,URINE 0-1 /HPF (0-1)
[2020-12-19 15:39] LABS: CREATININE 0.8 mg/dL (0.5-1.5); POTASSIUM 3.4 mmol/L (3.5-5.1)
[2020-12-19 15:45] LABS: ALBUMIN 3.8 g/dL (3.5-5.0); BILIRUBIN,TOTAL 0.7 mg/dL (0.2-1.0)
[2020-12-19] MEDS ORDERED: SOLU-MEDROL 125MG VIAL IVP ONE (16:00)
[2020-12-19] MEDS ORDERED: KETOROLAC 15MG/ML VIAL (15MG/ML) IV ONE (16:00)
[2020-12-19 18:38] VITALS: BP 133/66
[2020-12-19] MEDS ORDERED: METH4TAB3 PO (19:09)
[2020-12-19 19:18] VITALS: BP 138/64
== END 2020-12-19 20:38 | disposition home or self-care (01) ==
LOC: EDH 14:06
DX: S29.012A Strain of muscle and tendon of back wall of thorax, initial encounter (principal); M79.10 Myalgia, unspecified site; M54.2 Cervicalgia; R10.9 Unspecified abdominal pain; Z79.899 Other long term (current) drug therapy; Z79.1 Long term (current) use of non-steroidal anti-inflammatories (NSAID); Z79.82 Long term (current) use of aspirin; Z87.442 Personal history of urinary calculi; Z90.710 Acquired absence of both cervix and uterus; Z79.52 Long term (current) use of systemic steroids; X58.XXXA Exposure to other specified factors, initial encounter; Y93.89 Activity, other specified; Y92.89 Other specified places as the place of occurrence of the external cause; Y99.8 Other external cause status
CPT/HCPCS: 36415; 71045; 71250; 74176; 80053; 81001; 84484; 85025; 87077; 87088; 87186; 93005; 96374; 96375; 99285; J1885; J2930

== ENCOUNTER 2021-10-31 22:05 | Inpatient (IN) | payer BC ==
[~2021-10-31] VITALS: Ht 157.5 cm; Wt 67.9 kg
[~2021-10-31 22:05] MED LIST changes: +METH4TAB3 PO
[2021-10-31 22:36] LABS: APPEARANCE,URINE Clear (CLEAR); BILIRUBIN,URINE Negative (NEGATIVE); COLOR,URINE Yellow (YELLOW); GLUCOSE, URINE (UA) Negative (NEGATIVE); KETONES,URINE Negative (NEGATIVE); LEUKOCYTE ESTERASE ,URINE Large (NEGATIVE); NITRATE,URINE Negative (NEGATIVE); OCCULT BLOOD,URINE Moderate (NEGATIVE); PH,URINE 8.5 (5.0-8.0); PROTEIN,URINE Negative (NEGATIVE)
[2021-10-31 22:49] LABS: BACTERIA,URINE Few /HPF (None Seen); SQUAMOUS EPITHELIAL CELL,UR 0-2 /HPF (0-2)
[2021-10-31 22:59] LABS: BASOPHILS % (AUTO) 0.5 % (0.0-5.0); EOSINOPHILS % (AUTO) 0.4 % (0.0-8.0); LYMPHOCYTES % (AUTO) 18.5 % (21.0-51.0); MEAN CORPUSCULAR HGB CONC 34.6 g/dL (32.0-36.0); MEAN CORPUSCULAR VOLUME 86.7 fL (79-99); MONOCYTES % (AUTO) 12.2 % (3.0-13.0); NEUTROPHILS % (AUTO) 68.2 % (40.0-77.0); PLATELET COUNT (AUTO) 230 K/uL (130-400); RED BLOOD CELL COUNT(AUTO) 4.73 MIL/uL (4.00-5.50); WHITE BLOOD COUNT (AUTO) 9.5 K/uL (4.8-10.8)
[2021-10-31 23:17] LABS: CREATININE 0.7 mg/dL (0.5-1.5); POTASSIUM 3.5 mmol/L (3.5-5.1)
[2021-10-31 23:24] LABS: ALBUMIN 3.5 g/dL (3.5-5.0); BILIRUBIN,TOTAL 0.9 mg/dL (0.2-1.0); TOTAL PROTEIN, SERUM 7.2 g/dL (6.0-8.3)
[2021-11-01] MEDS ORDERED: ACETAMINOPHEN 500 MG TABLET PO ONE
[2021-11-01] MEDS ORDERED: ONDANSETRON 4MG INJ ONE (00:18)
[2021-11-01] MEDS ORDERED: MORPHINE 4 MG SYG ONE (00:18)
[2021-11-01] MEDS ORDERED: MORPHINE 4 MG SYG IVP ONE (00:30)
[2021-11-01] MEDS ORDERED: ONDANSETRON 4MG INJ IVP ONE (00:30)
[2021-11-01] MEDS ORDERED: CEFTAZIDIME PENTAHYDRATE 1 GM/VIAL IVP ONE (02:00)
[2021-11-01] MEDS ORDERED: ONDANSETRON 4MG INJ IV PRN (03:30)
[2021-11-01] MEDS: 0.9%NACL 1000ML 1,000 ML IV SCH ×3 (04:16→22:08)
[2021-11-01 05:17] LABS: BASOPHILS % (AUTO) 0.6 % (0.0-5.0); EOSINOPHILS % (AUTO) 0.4 % (0.0-8.0); HEMATOCRIT 39.5 % (36-48); LYMPHOCYTES % (AUTO) 22.2 % (21.0-51.0); MEAN CORPUSCULAR HEMOGLOBIN 29.4 pg (27.0-33.0); MEAN CORPUSCULAR HGB CONC 33.7 g/dL (32.0-36.0); MEAN CORPUSCULAR VOLUME 87.4 fL (79-99); MONOCYTES % (AUTO) 12.2 % (3.0-13.0); NEUTROPHILS % (AUTO) 64.3 % (40.0-77.0); PLATELET COUNT (AUTO) 239 K/uL (130-400); RED BLOOD CELL COUNT(AUTO) 4.52 MIL/uL (4.00-5.50); RED CELL DISTRIBUTION WIDTH 12.8 % (11.0-15.5)
[2021-11-01] MEDS: ACETAMINOPHEN 325 MG TAB PO PRN ×2 (05:29→16:41)
[2021-11-01] MEDS: MORPHINE 2 MG SYG IV PRN ×3 (05:29→14:57)
[2021-11-01 06:25] LABS: ALBUMIN 3.3 g/dL (3.5-5.0); CREATININE 0.7 mg/dL (0.5-1.5); POTASSIUM 3.3 mmol/L (3.5-5.1); TOTAL PROTEIN, SERUM 6.9 g/dL (6.0-8.3)
[2021-11-01 06:40] LABS: ERYTHROCYTE SEDIMENTATION RATE 28 MM/HR (0-30)
[2021-11-01] MEDS: FAMOTIDINE 20MG VIAL IV SCH ×2 (09:00→21:00)
[2021-11-01 10:45] VITALS: BP 147/73
[2021-11-01] MEDS: CEFTAZIDIME PENTAHYDRATE 1 GM/VIAL IVP SCH (14:47)
[2021-11-01 16:00] VITALS: BP 138/76
[2021-11-01] MEDS ORDERED: LIDOCAINE HCL-MPF 1% 2ML VIAL IJ PRN (20:30)
[2021-11-01] MEDS ORDERED: POTASSIUM CHLORIDE 10% ELIXIR 20 MEQ/15 ML UDCUP PO PRN (20:30)
[2021-11-01] MEDS ORDERED: POTASSIUM CHLORIDE 20MEQ/100ML 100 ML IV PRN (20:30)
[2021-11-01 20:41] VITALS: BP 125/65
[2021-11-01] MEDS: HYDROMORPHONE 1 MG INJ IVP PRN (22:02)
[2021-11-02] VITALS (13 sets, daily range): BP systolic 100–129; BP diastolic 50–85
[2021-11-02] MEDS: CEFTAZIDIME PENTAHYDRATE 1 GM/VIAL IVP SCH (01:57)
[2021-11-02] MEDS: MORPHINE 2 MG SYG IV PRN (01:59)
[2021-11-02] MEDS ORDERED: MAGNESIUM 2GM PREMIX 50ML 50 ML IV PRN (03:30)
[2021-11-02] MEDS: ACETAMINOPHEN 325 MG TAB PO PRN (04:33)
[2021-11-02 05:25] LABS: INR 0.94 (0.85-1.15); PROTHROMBIN TIME 10.3 SEC (9.6-11.6)
[2021-11-02 05:27] LABS: PARTIAL THROMBOPLASTIN TIME 34.6 SEC (26.3-35.5)
[2021-11-02] MEDS: HYDROMORPHONE 1 MG INJ IVP PRN ×4 (06:54→20:25)
[2021-11-02] MEDS ORDERED: RENAL DOSE IV SCH (08:30)
[2021-11-02 08:32] LABS: BASOPHILS % (AUTO) 0.6 % (0.0-5.0); HEMATOCRIT 37.9 % (36-48); LYMPHOCYTES % (AUTO) 20.5 % (21.0-51.0); MEAN CORPUSCULAR HEMOGLOBIN 29.6 pg (27.0-33.0); MEAN CORPUSCULAR HGB CONC 33.8 g/dL (32.0-36.0); MEAN CORPUSCULAR VOLUME 87.7 fL (79-99); MONOCYTES % (AUTO) 14.4 % (3.0-13.0); NEUTROPHILS % (AUTO) 63.2 % (40.0-77.0); PLATELET COUNT (AUTO) 235 K/uL (130-400); RED BLOOD CELL COUNT(AUTO) 4.32 MIL/uL (4.00-5.50); WHITE BLOOD COUNT (AUTO) 8.7 K/uL (4.8-10.8)
[2021-11-02 08:37] LABS: CREATININE 0.7 mg/dL (0.5-1.5); POTASSIUM 3.5 mmol/L (3.5-5.1)
[2021-11-02] MEDS: FAMOTIDINE 20MG VIAL IV SCH (09:00)
[2021-11-02] MEDS ORDERED: IOHEXOL-350 50ML VIAL IV ONE (10:07)
[2021-11-02] MEDS ORDERED: MIDAZOLAM HCL 1 MG/ML 2ML VIAL ONE (10:08)
[2021-11-02] MEDS ORDERED: FENTANYL CITRATE PF 50 MCG/1 ML 2ML VIAL ONE (10:09)
[2021-11-02] MEDS: MEROPENEM 500 MG VIAL IVP SCH ×2 (11:29→18:41)
[2021-11-02] MEDS: TAMSULOSIN HCL 0.4 MG CAP.ER.24H PO SCH (11:31)
[2021-11-02] MEDS: 0.9%NACL 1000ML 1,000 ML IV SCH ×2 (11:32→18:53)
[2021-11-02] MEDS: KCL 20 MEQ ERTAB PO PRN ×2 (11:33→18:52)
[2021-11-03] MEDS: MEROPENEM 500 MG VIAL IVP SCH ×3 (00:58→21:13)
[2021-11-03] MEDS: 0.9%NACL 1000ML 1,000 ML IV SCH ×3 (02:05→21:13)
[2021-11-03 04:27] VITALS: BP 116/59
[2021-11-03] MEDS: HYDROMORPHONE 1 MG INJ IVP PRN ×3 (04:58→13:02)
[2021-11-03 05:09] LABS: BASOPHILS % (AUTO) 0.4 % (0.0-5.0); EOSINOPHILS % (AUTO) 1.5 % (0.0-8.0); HEMATOCRIT 37.3 % (36-48); LYMPHOCYTES % (AUTO) 26.2 % (21.0-51.0); MEAN CORPUSCULAR HEMOGLOBIN 29.8 pg (27.0-33.0); MEAN CORPUSCULAR HGB CONC 34.3 g/dL (32.0-36.0); MEAN CORPUSCULAR VOLUME 86.9 fL (79-99); MONOCYTES % (AUTO) 13.4 % (3.0-13.0); NEUTROPHILS % (AUTO) 58.4 % (40.0-77.0); PLATELET COUNT (AUTO) 241 K/uL (130-400); RED BLOOD CELL COUNT(AUTO) 4.29 MIL/uL (4.00-5.50); RED CELL DISTRIBUTION WIDTH 13.1 % (11.0-15.5); WHITE BLOOD COUNT (AUTO) 6.8 K/uL (4.8-10.8)
[2021-11-03 05:39] LABS: CREATININE 0.6 mg/dL (0.5-1.5); MAGNESIUM 1.9 mg/dL (1.80-2.40); POTASSIUM 3.8 mmol/L (3.5-5.1)
[2021-11-03 08:00] VITALS: BP 125/70
[2021-11-03] MEDS: ACETAMINOPHEN 325 MG TAB PO PRN ×2 (10:10→21:13)
[2021-11-03] MEDS: TAMSULOSIN HCL 0.4 MG CAP.ER.24H PO SCH (10:11)
[2021-11-03] MEDS: FAMOTIDINE 20MG TAB PO SCH ×2 (10:11→21:13)
[2021-11-03 11:43] VITALS: BP 119/69
[2021-11-03] MEDS: KCL 20 MEQ ERTAB PO PRN (13:06)
[2021-11-03 16:00] VITALS: BP 99/58
[2021-11-03 20:38] VITALS: BP 104/47
[2021-11-04 01:07] VITALS: BP 136/74
[2021-11-04 04:04] VITALS: BP 149/81
[2021-11-04] MEDS: MORPHINE 2 MG SYG IV PRN (04:59)
[2021-11-04] MEDS: MEROPENEM 500 MG VIAL IVP SCH ×3 (05:00→17:06)
[2021-11-04 05:31] LABS: EOSINOPHILS % (AUTO) 4.5 % (0.0-8.0); HEMATOCRIT 36.2 % (36-48); MEAN CORPUSCULAR HGB CONC 32.6 g/dL (32.0-36.0); MEAN CORPUSCULAR VOLUME 88.9 fL (79-99); MONOCYTES % (AUTO) 10.4 % (3.0-13.0); NEUTROPHILS % (AUTO) 45.7 % (40.0-77.0); PLATELET COUNT (AUTO) 260 K/uL (130-400); RED BLOOD CELL COUNT(AUTO) 4.07 MIL/uL (4.00-5.50); WHITE BLOOD COUNT (AUTO) 5.1 K/uL (4.8-10.8)
[2021-11-04 05:55] LABS: CREATININE 0.7 mg/dL (0.5-1.5); POTASSIUM 3.9 mmol/L (3.5-5.1)
[2021-11-04 08:00] VITALS: BP 126/80
[2021-11-04] MEDS: TAMSULOSIN HCL 0.4 MG CAP.ER.24H PO SCH (08:53)
[2021-11-04] MEDS: FAMOTIDINE 20MG TAB PO SCH ×2 (08:53→20:16)
[2021-11-04] MEDS: HYDROMORPHONE 1 MG INJ IVP PRN ×2 (10:12→10:17)
[2021-11-04 11:56] VITALS: BP 142/80
[2021-11-04] MEDS: 0.9%NACL 1000ML 1,000 ML IV SCH ×2 (13:19→20:23)
[2021-11-04 16:00] VITALS: BP 108/72
[2021-11-04] MEDS: HYDROXYZINE 25 MG TABLET PO PRN (17:07)
[2021-11-04 20:00] VITALS: BP 136/78
[2021-11-04] MEDS: CITRIC ACID/SODIUM CITRATE 30 ML UDCUP PO SCH (20:16)
[2021-11-04] MEDS: ACETAMINOPHEN WITH CODEINE 1 TAB TAB PO PRN (22:42)
[2021-11-05] VITALS: BP 126/77
[2021-11-05] MEDS: MEROPENEM 500 MG VIAL IVP SCH ×3 (00:45→17:11)
[2021-11-05 04:00] VITALS: BP 133/72
[2021-11-05 05:45] LABS: BASOPHILS % (AUTO) 0.7 % (0.0-5.0); EOSINOPHILS % (AUTO) 4.9 % (0.0-8.0); HEMATOCRIT 37.4 % (36-48); LYMPHOCYTES % (AUTO) 52.3 % (21.0-51.0); MEAN CORPUSCULAR HEMOGLOBIN 29.8 pg (27.0-33.0); MEAN CORPUSCULAR VOLUME 87.8 fL (79-99); NEUTROPHILS % (AUTO) 32.9 % (40.0-77.0); PLATELET COUNT (AUTO) 318 K/uL (130-400); RED BLOOD CELL COUNT(AUTO) 4.26 MIL/uL (4.00-5.50); RED CELL DISTRIBUTION WIDTH 13.2 % (11.0-15.5); WHITE BLOOD COUNT (AUTO) 5.5 K/uL (4.8-10.8)
[2021-11-05 05:55] LABS: CREATININE 0.6 mg/dL (0.5-1.5); POTASSIUM 3.9 mmol/L (3.5-5.1)
[2021-11-05] MEDS: 0.9%NACL 1000ML 1,000 ML IV SCH ×2 (06:49→17:11)
[2021-11-05 07:30] VITALS: BP 137/74
[2021-11-05] MEDS: FAMOTIDINE 20MG TAB PO SCH ×2 (09:32→21:47)
[2021-11-05] MEDS: CITRIC ACID/SODIUM CITRATE 30 ML UDCUP PO SCH ×3 (09:32→21:47)
[2021-11-05] MEDS: SERTRALINE HCL 50 MG TABLET PO SCH (09:32)
[2021-11-05] MEDS: TAMSULOSIN HCL 0.4 MG CAP.ER.24H PO SCH (09:32)
[2021-11-05] MEDS: ENOXAPARIN SODIUM 40 MG/0.4 ML SYRINGE SQ SCH (09:33)
[2021-11-05 11:00] VITALS: BP_SYST 118; BP_SYST 132; BP_DIAS 65; BP_DIAS 79
[2021-11-05] MEDS: ACETAMINOPHEN WITH CODEINE 1 TAB TAB PO PRN ×2 (11:43→21:47)
[2021-11-05 16:00] VITALS: BP 124/59
[2021-11-05 20:00] VITALS: BP 120/78
[2021-11-06] VITALS: BP 154/84
[2021-11-06] MEDS: MEROPENEM 500 MG VIAL IVP SCH ×3 (01:32→17:35)
[2021-11-06 04:00] VITALS: BP 145/83
[2021-11-06] MEDS: 0.9%NACL 1000ML 1,000 ML IV SCH ×2 (04:17→14:34)
[2021-11-06 05:29] LABS: EOSINOPHILS % (AUTO) 4.5 % (0.0-8.0); HEMATOCRIT 36.9 % (36-48); LYMPHOCYTES % (AUTO) 54.1 % (21.0-51.0); MEAN CORPUSCULAR HGB CONC 33.1 g/dL (32.0-36.0); MEAN CORPUSCULAR VOLUME 87.9 fL (79-99); MONOCYTES % (AUTO) 8.1 % (3.0-13.0); NEUTROPHILS % (AUTO) 32.1 % (40.0-77.0); PLATELET COUNT (AUTO) 329 K/uL (130-400); RED CELL DISTRIBUTION WIDTH 12.8 % (11.0-15.5); WHITE BLOOD COUNT (AUTO) 5.2 K/uL (4.8-10.8)
[2021-11-06 05:37] LABS: CREATININE 0.5 mg/dL (0.5-1.5); POTASSIUM 3.6 mmol/L (3.5-5.1)
[2021-11-06] MEDS: KCL 20 MEQ ERTAB PO PRN ×2 (07:19→15:42)
[2021-11-06] MEDS: ACETAMINOPHEN WITH CODEINE 1 TAB TAB PO PRN ×2 (07:20→14:30)
[2021-11-06 07:30] VITALS: BP 131/67
[2021-11-06] MEDS: FAMOTIDINE 20MG TAB PO SCH ×2 (09:00→21:35)
[2021-11-06] MEDS: TAMSULOSIN HCL 0.4 MG CAP.ER.24H PO SCH (09:00)
[2021-11-06] MEDS: ENOXAPARIN SODIUM 40 MG/0.4 ML SYRINGE SQ SCH (09:00)
[2021-11-06] MEDS: CITRIC ACID/SODIUM CITRATE 30 ML UDCUP PO SCH ×3 (09:00→21:35)
[2021-11-06] MEDS: SERTRALINE HCL 50 MG TABLET PO SCH (09:00)
[2021-11-06 11:00] VITALS: BP 129/68
[2021-11-06 16:00] VITALS: BP 128/61
[2021-11-06 20:00] VITALS: BP 152/65
[2021-11-06] MEDS: HYDROXYZINE 25 MG TABLET PO PRN (23:05)
[2021-11-07] VITALS (7 sets, daily range): BP systolic 98–148; BP diastolic 65–76
[2021-11-07] MEDS: MEROPENEM 500 MG VIAL IVP SCH ×3 (00:14→15:43)
[2021-11-07] MEDS: 0.9%NACL 1000ML 1,000 ML IV SCH ×2 (00:14→11:34)
[2021-11-07 05:14] LABS: BASOPHILS % (AUTO) 0.8 % (0.0-5.0); EOSINOPHILS % (AUTO) 4.2 % (0.0-8.0); HEMATOCRIT 37.2 % (36-48); LYMPHOCYTES % (AUTO) 46.8 % (21.0-51.0); MEAN CORPUSCULAR HGB CONC 34.7 g/dL (32.0-36.0); MEAN CORPUSCULAR VOLUME 86.5 fL (79-99); MONOCYTES % (AUTO) 7.4 % (3.0-13.0); NEUTROPHILS % (AUTO) 40.5 % (40.0-77.0); PLATELET COUNT (AUTO) 359 K/uL (130-400); WHITE BLOOD COUNT (AUTO) 6.5 K/uL (4.8-10.8)
[2021-11-07 05:30] LABS: CREATININE 0.5 mg/dL (0.5-1.5); POTASSIUM 3.7 mmol/L (3.5-5.1)
[2021-11-07] MEDS: TAMSULOSIN HCL 0.4 MG CAP.ER.24H PO SCH (09:35)
[2021-11-07] MEDS: ENOXAPARIN SODIUM 40 MG/0.4 ML SYRINGE SQ SCH (09:35)
[2021-11-07] MEDS: SERTRALINE HCL 50 MG TABLET PO SCH (09:35)
[2021-11-07] MEDS: FAMOTIDINE 20MG TAB PO SCH ×2 (09:35→19:34)
[2021-11-07] MEDS: CITRIC ACID/SODIUM CITRATE 30 ML UDCUP PO SCH ×3 (09:35→19:34)
[2021-11-07] MEDS: KCL 20 MEQ ERTAB PO PRN ×2 (09:47→11:24)
[2021-11-07 15:36] LABS: INR 0.94 (0.85-1.15); PROTHROMBIN TIME 10.3 SEC (9.6-11.6)
[2021-11-07 15:37] LABS: PARTIAL THROMBOPLASTIN TIME 31.6 SEC (26.3-35.5)
[2021-11-07] MEDS: ACETAMINOPHEN WITH CODEINE 1 TAB TAB PO PRN (18:12)
[2021-11-08] MEDS: MEROPENEM 500 MG VIAL IVP SCH ×3 (00:17→16:12)
[2021-11-08 04:25] VITALS: BP 137/74
[2021-11-08 05:52] LABS: BASOPHILS % (AUTO) 0.9 % (0.0-5.0); EOSINOPHILS % (AUTO) 4.4 % (0.0-8.0); HEMATOCRIT 39.2 % (36-48); LYMPHOCYTES % (AUTO) 41.2 % (21.0-51.0); MEAN CORPUSCULAR HEMOGLOBIN 28.8 pg (27.0-33.0); MEAN CORPUSCULAR HGB CONC 32.9 g/dL (32.0-36.0); MEAN CORPUSCULAR VOLUME 87.5 fL (79-99); MONOCYTES % (AUTO) 7.1 % (3.0-13.0); NEUTROPHILS % (AUTO) 46.1 % (40.0-77.0); PLATELET COUNT (AUTO) 357 K/uL (130-400); RED BLOOD CELL COUNT(AUTO) 4.48 MIL/uL (4.00-5.50); RED CELL DISTRIBUTION WIDTH 12.8 % (11.0-15.5); WHITE BLOOD COUNT (AUTO) 6.6 K/uL (4.8-10.8)
[2021-11-08 06:01] LABS: CREATININE 0.5 mg/dL (0.5-1.5); POTASSIUM 4.3 mmol/L (3.5-5.1)
[2021-11-08 07:05] VITALS: BP 160/80
[2021-11-08] MEDS: ENOXAPARIN SODIUM 40 MG/0.4 ML SYRINGE SQ SCH (09:00)
[2021-11-08] MEDS: SERTRALINE HCL 50 MG TABLET PO SCH (09:54)
[2021-11-08] MEDS: FAMOTIDINE 20MG TAB PO SCH ×2 (09:54→21:20)
[2021-11-08] MEDS: CITRIC ACID/SODIUM CITRATE 30 ML UDCUP PO SCH ×3 (09:54→21:20)
[2021-11-08] MEDS: TAMSULOSIN HCL 0.4 MG CAP.ER.24H PO SCH (09:54)
[2021-11-08 11:05] VITALS: BP 121/65
[2021-11-08] MEDS ORDERED: TAMS-1 PO (12:27)
[2021-11-08 15:05] VITALS: BP 118/87
[2021-11-08] MEDS: 0.9%NACL 1000ML 1,000 ML IV SCH (15:30)
[2021-11-08 20:00] VITALS: BP 131/76
[2021-11-08] MEDS: ACETAMINOPHEN 325 MG TAB PO PRN (21:19)
[2021-11-09] VITALS: BP 123/75
[2021-11-09] MEDS: MEROPENEM 500 MG VIAL IVP SCH ×3 (00:13→16:56)
[2021-11-09] MEDS: 0.9%NACL 1000ML 1,000 ML IV SCH ×3 (01:30→21:28)
[2021-11-09 04:00] VITALS: BP 127/75
[2021-11-09 07:52] VITALS: BP 136/73
[2021-11-09] MEDS: TAMSULOSIN HCL 0.4 MG CAP.ER.24H PO SCH (08:54)
[2021-11-09] MEDS: CITRIC ACID/SODIUM CITRATE 30 ML UDCUP PO SCH ×3 (08:54→21:24)
[2021-11-09] MEDS: SERTRALINE HCL 50 MG TABLET PO SCH (08:54)
[2021-11-09] MEDS: FAMOTIDINE 20MG TAB PO SCH ×2 (08:54→21:24)
[2021-11-09] MEDS: ENOXAPARIN SODIUM 40 MG/0.4 ML SYRINGE SQ SCH (08:59)
[2021-11-09 11:41] VITALS: BP 122/78
[2021-11-09] MEDS: ACETAMINOPHEN WITH CODEINE 1 TAB TAB PO PRN (14:44)
[2021-11-09 16:00] VITALS: BP 131/68
[2021-11-09 20:58] VITALS: BP 129/84
[2021-11-10] MEDS: MEROPENEM 500 MG VIAL IVP SCH ×2 (00:12→08:30)
[2021-11-10 00:13] VITALS: BP 128/71
[2021-11-10 04:17] VITALS: BP 123/61
[2021-11-10 07:40] VITALS: BP 133/77
[2021-11-10] MEDS: SERTRALINE HCL 50 MG TABLET PO SCH (08:29)
[2021-11-10] MEDS: TAMSULOSIN HCL 0.4 MG CAP.ER.24H PO SCH (08:29)
[2021-11-10] MEDS: FAMOTIDINE 20MG TAB PO SCH (08:29)
[2021-11-10] MEDS: CITRIC ACID/SODIUM CITRATE 30 ML UDCUP PO SCH (08:29)
[2021-11-10] MEDS: ENOXAPARIN SODIUM 40 MG/0.4 ML SYRINGE SQ SCH (08:30)
== END 2021-11-10 09:15 | disposition home health service (06) | DRG 872 ==
LOC: EDH 22:05 → EDHIP 11-01 03:11 → 3BH 11-01 10:33
PROVIDERS: ADMIT Hospitalist; ATTEND Hospitalist
PROC: 0T9030Z Drainage of Right Kidney with Drainage Device, Percutaneous Approach (ICD-10-PCS; principal; 2021-11-02)
PROC: BT111ZZ Fluoroscopy of Right Kidney using Low Osmolar Contrast (ICD-10-PCS; 2021-11-02)
DX: A41.50 Gram-negative sepsis, unspecified (principal); N13.6 Pyonephrosis; Z86.19 Personal history of other infectious and parasitic diseases; Z87.440 Personal history of urinary (tract) infections; Z87.442 Personal history of urinary calculi; Z90.710 Acquired absence of both cervix and uterus; F41.9 Anxiety disorder, unspecified; F32.A Depression, unspecified; Z20.822 Contact with and (suspected) exposure to COVID-19; R53.81 Other malaise
CPT/HCPCS: 36415; 50432; 74176; 80048; 80053; 81001; 83605; 83735; 84145; 84484; 85025; 85610; 85651; 85730; 87040; 87077; 87088; 87186; 87635; 87804; 93005; 99156; 99157; C1729; C1894; C9803; G0378; J0713; J1170; J1644; J1650; J2185; J2250; J2270; J2405; J3010; J3475; J7030; Q9967

== ENCOUNTER → 2021-11-11 | Outpatient (CLI) | payer BC ==
[~2021-11-11] MED LIST changes: -CIPR-278 PO; -MELA10TA2 PO; -METH4TAB3 PO; -ONDA-104 PO; +TAMS-1 PO
== END | disposition home or self-care (01) ==
LOC: RAH 14:26
PROVIDERS: ATTEND Urology
DX: N20.0 Calculus of kidney (principal)
CPT/HCPCS: 74018; 76100

== ENCOUNTER 2021-12-20 11:59 | Day surgery (SDC) | payer BC ==
[2021-12-15 10:29] LABS: HEMATOCRIT 43.4 % (36-48); MEAN CORPUSCULAR HEMOGLOBIN 30.1 pg (27.0-33.0); MEAN CORPUSCULAR HGB CONC 34.1 g/dL (32.0-36.0); MEAN CORPUSCULAR VOLUME 88.4 fL (79-99); RED BLOOD CELL COUNT(AUTO) 4.91 MIL/uL (4.00-5.50); RED CELL DISTRIBUTION WIDTH 13.5 % (11.0-15.5); WHITE BLOOD COUNT (AUTO) 5.3 K/uL (4.8-10.8)
[2021-12-15 10:41] LABS: ALBUMIN 3.9 g/dL (3.5-5.0); CREATININE 0.6 mg/dL (0.5-1.5); POTASSIUM 4.4 mmol/L (3.5-5.1); TOTAL PROTEIN, SERUM 7.2 g/dL (6.0-8.3)
[2021-12-15 10:43] LABS: APPEARANCE,URINE Clear (CLEAR); BILIRUBIN,URINE Negative (NEGATIVE); COLOR,URINE Yellow (YELLOW); GLUCOSE, URINE (UA) Negative (NEGATIVE); KETONES,URINE Negative (NEGATIVE); LEUKOCYTE ESTERASE ,URINE Small (NEGATIVE); NITRATE,URINE Negative (NEGATIVE); OCCULT BLOOD,URINE Negative (NEGATIVE); PROTEIN,URINE Negative (NEGATIVE); UROBILINOGEN,URINE 0.2 mg/dL (0.2-1.0)
[2021-12-15 10:48] LABS: INR 0.93 (0.85-1.15); PROTHROMBIN TIME 9.9 SEC (9.6-11.6)
[2021-12-15 10:50] LABS: PARTIAL THROMBOPLASTIN TIME 27.3 SEC (26.3-35.5)
[2021-12-15 11:12] LABS: BACTERIA,URINE Few /HPF (None Seen); RBC,URINE None Seen /HPF (0-1); WBC,URINE 0-1 /HPF (0-1)
[2021-12-15 11:13] LABS: SQUAMOUS EPITHELIAL CELL,UR None Seen /HPF (0-2)
[2021-12-19 08:33] VITALS: BP 141/74
[2021-12-20] VITALS (19 sets, daily range): BP systolic 120–147; BP diastolic 62–90
[~2021-12-20] VITALS: Ht 157.5 cm; Wt 69.7 kg
[~2021-12-20 11:59] MED LIST changes: -ASPI-1197 PO; -CITRIC ACID PO; +LACTATED RINGERS 1000ML 1,000 ML IV SCH; -MAGN400T25 PO; +MEROPENEM 1 GM VIAL IVP SCH; -TAMS-1 PO; +ZOSYN 3.375GM+NS 50ML 50 ML IV SCH
[2021-12-20] MEDS: MEROPENEM 1 GM VIAL ONE ×2 (13:33→15:10)
[2021-12-20] MEDS ORDERED: MIDAZOLAM HCL 1 MG/ML 2ML VIAL ONE (14:26)
[2021-12-20] MEDS ORDERED: GLYCOPYRROLATE 1 MG/5 ML SYRINGE ONE (14:26)
[2021-12-20] MEDS ORDERED: ROCURONIUM 10MG/1ML SYR 10 MG/ML ML ONE (14:26)
[2021-12-20] MEDS ORDERED: PROPOFOL 10 MG/ML 20ML VIAL IV ONE (14:26)
[2021-12-20] MEDS ORDERED: FENTANYL CITRATE PF 50 MCG/1 ML 2ML VIAL ONE (14:27)
[2021-12-20] MEDS ORDERED: ONDANSETRON 4MG INJ ONE (15:33)
[2021-12-20] MEDS ORDERED: NEOSTIGMINE 5MG/5ML SYR IV ONE (16:18)
[2021-12-20] MEDS ORDERED: MEPERIDINE-PF 25 MG/ML SYG ONE (16:45)
== END 2021-12-20 18:30 | disposition home or self-care (01) ==
LOC: DAH 11:59
PROVIDERS: ATTEND Urology
DX: N20.0 Calculus of kidney (principal); K21.9 Gastro-esophageal reflux disease without esophagitis; D64.9 Anemia, unspecified; Z79.01 Long term (current) use of anticoagulants; Z79.899 Other long term (current) drug therapy; Z93.6 Other artificial openings of urinary tract status; Z98.891 History of uterine scar from previous surgery; Z90.710 Acquired absence of both cervix and uterus
CPT/HCPCS: 80053; 85027; 85610; 85730; 87077; 87088; 87186; 87426; 81001; 36415; 71046; 93005; 50590; A6260; J7120; J3010; J3490; J2710; J2250; J2704; J2405; J2175; J2185; A4930; A4215; A4223; A4222; A4221; A4663

== ENCOUNTER → 2022-01-12 | Outpatient (CLI) | payer BC ==
[~2022-01-12] MED LIST changes: -LACTATED RINGERS 1000ML 1,000 ML IV SCH; -MEROPENEM 1 GM VIAL IVP SCH; -ZOSYN 3.375GM+NS 50ML 50 ML IV SCH
== END | disposition home or self-care (01) ==
LOC: RAH 08:23
PROVIDERS: ATTEND Urology
DX: N20.0 Calculus of kidney (principal)
CPT/HCPCS: 74018; 76100

== ENCOUNTER 2022-05-25 16:45 | Emergency (ER) | payer BC ==
[~2022-05-25] VITALS: Ht 157.5 cm; Wt 68.0 kg
[2022-05-25] MEDS ORDERED: KETOROLAC 30MG VIAL (30MG/ML) ONE (16:55)
[2022-05-25] MEDS ORDERED: 0.9%NACL 1000ML 1,000 ML IV ONE ×2 (16:55→17:00)
[2022-05-25] MEDS ORDERED: KETOROLAC 30MG VIAL (30MG/ML) IVP ONE (17:00)
[2022-05-25 17:05] LABS: EOSINOPHILS % (AUTO) 0.5 % (0.0-8.0); HEMATOCRIT 40.2 % (36-48); LYMPHOCYTES % (AUTO) 10.6 % (21.0-51.0); MEAN CORPUSCULAR HEMOGLOBIN 30.1 pg (27.0-33.0); MEAN CORPUSCULAR HGB CONC 34.8 g/dL (32.0-36.0); MEAN CORPUSCULAR VOLUME 86.5 fL (79-99); MONOCYTES % (AUTO) 10.9 % (3.0-13.0); NEUTROPHILS % (AUTO) 76.5 % (40.0-77.0); PLATELET COUNT (AUTO) 213 K/uL (130-400); RED BLOOD CELL COUNT(AUTO) 4.65 MIL/uL (4.00-5.50); RED CELL DISTRIBUTION WIDTH 12.8 % (11.0-15.5); WHITE BLOOD COUNT (AUTO) 8.3 K/uL (4.8-10.8)
[2022-05-25 17:08] LABS: APPEARANCE,URINE CLEAR (CLEAR); BILIRUBIN,URINE NEGATIVE (NEGATIVE); COLOR,URINE COLORLESS (YELLOW); GLUCOSE, URINE (UA) NEGATIVE (NEGATIVE); KETONES,URINE NEGATIVE (NEGATIVE); LEUKOCYTE ESTERASE ,URINE 25 Leu/uL (NEGATIVE); NITRATE,URINE NEGATIVE (NEGATIVE); OCCULT BLOOD,URINE SMALL (NEGATIVE); PH,URINE 7.5 (5.0-8.0); PROTEIN,URINE NEGATIVE (NEGATIVE); UROBILINOGEN,URINE 0.2 mg/dL (0.2-1.0)
[2022-05-25 17:11] LABS: BACTERIA,URINE RARE /HPF (None Seen); MUCUS,URINE RARE LPF (None Seen); SQUAMOUS EPITHELIAL CELL,UR RARE /HPF (0-2)
[2022-05-25 17:13] LABS: CREATININE 0.7 mg/dL (0.5-1.5); POTASSIUM 3.3 mmol/L (3.5-5.1)
[2022-05-25 17:18] LABS: ALBUMIN 3.7 g/dL (3.5-5.0); TOTAL PROTEIN, SERUM 6.8 g/dL (6.0-8.3)
[2022-05-25] MEDS ORDERED: MORPHINE 4 MG SYG IVP STA (17:24)
[2022-05-25] MEDS ORDERED: ONDANSETRON 4MG INJ IVP STA (17:24)
[2022-05-25] MEDS ORDERED: ONDANSETRON 4MG INJ ONE (17:25)
[2022-05-25] MEDS ORDERED: MORPHINE 4 MG SYG ONE (17:25)
[2022-05-25] MEDS ORDERED: IOHEXOL 350 MG/ML 100ML INFUS..BTL IV ONE (17:58)
[2022-05-25] MEDS ORDERED: CEFTRIAXONE 1G VIAL IVP ONE (19:00)
[2022-05-25 19:38] VITALS: BP 119/64
[2022-05-25] MEDS ORDERED: MACR100 PO (20:13)
== END 2022-05-25 20:28 | disposition home or self-care (01) ==
LOC: EDH 16:45
DX: N39.0 Urinary tract infection, site not specified (principal); Z90.49 Acquired absence of other specified parts of digestive tract; Z79.899 Other long term (current) drug therapy
CPT/HCPCS: 74178; 99284; 96374; 96361; 96375 ×2; 80053; 85025; 87077; 87088; 87186; 81001; 36415; J7030; J0696; J2405; J2270; J1885; Q9967

== ENCOUNTER 2022-06-20 08:55 | Emergency (ER) | payer BC ==
[~2022-06-20] VITALS: Ht 157.5 cm; Wt 70.3 kg
[~2022-06-20 08:55] MED LIST changes: +MACR100 PO
[2022-06-20 09:20] LABS: BASOPHILS % (AUTO) 0.7 % (0.0-5.0); EOSINOPHILS % (AUTO) 2.4 % (0.0-8.0); HEMATOCRIT 42.3 % (36-48); LYMPHOCYTES % (AUTO) 18.5 % (21.0-51.0); MEAN CORPUSCULAR HEMOGLOBIN 29.6 pg (27.0-33.0); MEAN CORPUSCULAR HGB CONC 35.2 g/dL (32.0-36.0); MEAN CORPUSCULAR VOLUME 83.9 fL (79-99); MONOCYTES % (AUTO) 7.6 % (3.0-13.0); NEUTROPHILS % (AUTO) 70.6 % (40.0-77.0); PLATELET COUNT (AUTO) 251 K/uL (130-400); RED BLOOD CELL COUNT(AUTO) 5.04 MIL/uL (4.00-5.50); RED CELL DISTRIBUTION WIDTH 13.1 % (11.0-15.5); WHITE BLOOD COUNT (AUTO) 10.5 K/uL (4.8-10.8)
[2022-06-20] MEDS ORDERED: 0.9%NACL 1000ML 1,000 ML IV ONE (09:30)
[2022-06-20 09:34] LABS: CREATININE 0.7 mg/dL (0.5-1.5); POTASSIUM 3.8 mmol/L (3.5-5.1)
[2022-06-20 09:41] LABS: ALBUMIN 3.9 g/dL (3.5-5.0); TOTAL PROTEIN, SERUM 7.4 g/dL (6.0-8.3)
[2022-06-20 10:14] LABS: APPEARANCE,URINE CLEAR (CLEAR); BILIRUBIN,URINE NEGATIVE (NEGATIVE); COLOR,URINE LIGHT-YELLOW (YELLOW); GLUCOSE, URINE (UA) NEGATIVE (NEGATIVE); KETONES,URINE NEGATIVE (NEGATIVE); LEUKOCYTE ESTERASE ,URINE 500 Leu/uL (NEGATIVE); NITRATE,URINE NEGATIVE (NEGATIVE); PH,URINE 7.5 (5.0-8.0); PROTEIN,URINE NEGATIVE (NEGATIVE); UROBILINOGEN,URINE 0.2 mg/dL (0.2-1.0)
[2022-06-20] MEDS ORDERED: ACETAMINOPHEN 500 MG TABLET PO STA (10:27)
[2022-06-20 10:33] LABS: BACTERIA,URINE FEW /HPF (None Seen); MUCUS,URINE RARE LPF (None Seen); SQUAMOUS EPITHELIAL CELL,UR RARE /HPF (0-2); WBC,URINE 51-100 /HPF (0-1)
[2022-06-20 10:46] VITALS: BP 113/79
[2022-06-20] MEDS ORDERED: NIRM1TAB PO (11:16)
[2022-06-20] MEDS ORDERED: CEPH500B PO (11:16)
== END 2022-06-20 11:22 | disposition home or self-care (01) ==
LOC: EDH 08:55
DX: U07.1 COVID-19 (principal); N39.0 Urinary tract infection, site not specified; Z20.822 Contact with and (suspected) exposure to COVID-19; Z87.442 Personal history of urinary calculi; Z90.710 Acquired absence of both cervix and uterus; Z98.890 Other specified postprocedural states
CPT/HCPCS: 99284; 96360; 71045; 87635; 84484; 80053; 85025; 85378; 87077; 87088; 87186; 87880; 87804 ×2; 81001; 36415; 93005; C9803; J7030

== ENCOUNTER → 2022-06-28 | Outpatient (CLI) | payer BC, OTHER ==
[~2022-06-28] MED LIST changes: +CEPH500B PO; +NIRM1TAB PO
== END | disposition home or self-care (01) ==
LOC: RAH 10:32
PROVIDERS: ATTEND Urology
DX: N20.0 Calculus of kidney (principal)
CPT/HCPCS: 74018; 76100

== ENCOUNTER 2022-07-07 16:31 | Emergency (ER) | payer BC, OTHER ==
[~2022-07-07] VITALS: Ht 157.5 cm; Wt 68.5 kg
[2022-07-07 17:31] LABS: BASOPHILS % (AUTO) 1.3 % (0.0-5.0); EOSINOPHILS % (AUTO) 3.3 % (0.0-8.0); HEMATOCRIT 40.8 % (36-48); LYMPHOCYTES % (AUTO) 45.8 % (21.0-51.0); MEAN CORPUSCULAR HEMOGLOBIN 29.6 pg (27.0-33.0); MEAN CORPUSCULAR HGB CONC 34.8 g/dL (32.0-36.0); MONOCYTES % (AUTO) 7.6 % (3.0-13.0); NEUTROPHILS % (AUTO) 41.8 % (40.0-77.0); PLATELET COUNT (AUTO) 283 K/uL (130-400); RED CELL DISTRIBUTION WIDTH 12.7 % (11.0-15.5); WHITE BLOOD COUNT (AUTO) 6.1 K/uL (4.8-10.8)
[2022-07-07 17:35] LABS: APPEARANCE,URINE CLEAR (CLEAR); BILIRUBIN,URINE NEGATIVE (NEGATIVE); COLOR,URINE LIGHT-YELLOW (YELLOW); GLUCOSE, URINE (UA) NEGATIVE (NEGATIVE); KETONES,URINE NEGATIVE (NEGATIVE); LEUKOCYTE ESTERASE ,URINE 250 Leu/uL (NEGATIVE); NITRATE,URINE NEGATIVE (NEGATIVE); PH,URINE 6.5 (5.0-8.0); PROTEIN,URINE NEGATIVE (NEGATIVE); UROBILINOGEN,URINE 0.2 mg/dL (0.2-1.0)
[2022-07-07 17:44] LABS: BACTERIA,URINE FEW /HPF (None Seen); MUCUS,URINE RARE LPF (None Seen); SQUAMOUS EPITHELIAL CELL,UR RARE /HPF (0-2); YEAST,URINE BUDDING FEW /HPF (None Seen)
[2022-07-07] MEDS ORDERED: KETOROLAC 15MG/ML VIAL (15MG/ML) IV ONE (18:00)
[2022-07-07 18:13] LABS: CREATININE 0.7 mg/dL (0.5-1.5); POTASSIUM 3.9 mmol/L (3.5-5.1)
[2022-07-07 18:18] LABS: ALBUMIN 3.9 g/dL (3.5-5.0); TOTAL PROTEIN, SERUM 6.8 g/dL (6.0-8.3)
[2022-07-07] MEDS ORDERED: MEROPENEM 1 GM VIAL IVP SCH (18:30)
[2022-07-07 18:46] VITALS: BP 124/76
[2022-07-07] MEDS ORDERED: MORPHINE 4 MG SYG IVP ONE (19:00)
[2022-07-07] MEDS ORDERED: ONDANSETRON 4MG INJ IVP ONE (19:00)
[2022-07-07] MEDS ORDERED: ACET-2079 PO (19:04)
[2022-07-07] MEDS ORDERED: MACR100 PO (19:04)
== END 2022-07-07 19:54 | disposition home or self-care (01) ==
LOC: EDH 16:31
DX: N39.0 Urinary tract infection, site not specified (principal); N20.0 Calculus of kidney; Z90.710 Acquired absence of both cervix and uterus
CPT/HCPCS: 99284; 74176; 96374; 96375; 80053; 85025; 87077; 87088; 87186; 81001; 36415; J2405; J2270; J1885; J2185